=== PATIENT | female | born 1990 | race Caucasian/White ===

== ENCOUNTER 2020-11-14 18:30 | Emergency (ER) | payer OTHER, SELFPAY ==
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
[2020-11-14 18:37] VITALS: BP 130/80; BP 148/76; PULSE 100; PULSE 128; RESP 18; TEMP 36.7; O2SAT 97; BMI 29.2
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
[2020-11-14] MEDS: Ondansetron ODT 4 MG TAB.RAPDIS TRANSLINGU (19:11)
[2020-11-14] MEDS: HYDROcodone Bit/Acetam 5/325 TABLET 1 TAB PO (19:12)
--- NOTE | 2020-11-14 19:18 | PC.NURSE ---
Patient medicated with pain meds per emar. Patient rates pain at 10
[2020-11-14 20:01] LABS: HCG Quantitative < 2 mIU/mL
[2020-11-14 22:00] VITALS: BP 116/86; PULSE 102; RESP 16; TEMP 36.6; O2SAT 98
== END 2020-11-14 22:13 | disposition home or self-care (01) ==
PROVIDERS: Emergency Provider Emergency Medicine; PCP Internal Medicine
DX: S00.12XA Contusion of left eyelid and periocular area, initial encounter (principal); S93.401A Sprain of unspecified ligament of right ankle, initial encounter; Y04.2XXA Assault by strike against or bumped into by another person, initial encounter; Y93.9 Activity, unspecified; Y92.410 Unspecified street and highway as the place of occurrence of the external cause; Y99.9 Unspecified external cause status
CPT/HCPCS: 36415; 70450; 70486; 73610; 73630; 84702; 99284

== ENCOUNTER 2020-12-29 11:16 | Outpatient (REF) | payer OTHER, SELFPAY ==
[2020-12-29 17:03] LABS: CT PCR NOT DETECTED (Not Detect.); NG PCR NOT DETECTED (Not Detect.)
[2020-12-30 08:55] LABS: BV Int Neg Control Negative (Negative); BV Int Pos Control Positive (Positive)
== END 2020-12-29 11:17 | disposition home or self-care (01) ==
LOC: HO.LAB 11:16
PROVIDERS: PCP Internal Medicine; Visit Provider Advanced Practice Midwife
DX: Z01.411 Encounter for gynecological examination (general) (routine) with abnormal findings (principal); L30.9 Dermatitis, unspecified; N76.0 Acute vaginitis; B96.89 Other specified bacterial agents as the cause of diseases classified elsewhere
CPT/HCPCS: 87480; 87491; 87510; 87591; 87660

== ENCOUNTER 2021-10-26 15:23 | Emergency (ER) | payer OTHER, SELFPAY ==
[2021-10-26 16:09] VITALS: BP 127/60; PULSE 67; RESP 18; TEMP 36.7; O2SAT 98; BMI 30.9
== END 2021-10-26 20:35 | disposition left against medical advice (07) ==
PROVIDERS: Emergency Provider Emergency Medicine; PCP Internal Medicine
DX: R51.9 Headache, unspecified (principal)
CPT/HCPCS: 99281

== ENCOUNTER 2022-02-03 11:17 | Outpatient (REF) | payer OTHER, SELFPAY | END 2022-02-03 11:18 | disposition home or self-care (01) | LOC: HO.LNP 11:17 | PROVIDERS: Visit Provider Advanced Practice Midwife | DX: Z01.419 Encounter for gynecological examination (general) (routine) without abnormal findings (principal) | CPT/HCPCS: 88142 ==

== ENCOUNTER 2022-04-22 10:14 | Outpatient (REF) | payer OTHER, SELFPAY ==
[2022-04-22 10:34] LABS: MANUAL DIFF FLAG NO
[2022-04-22 10:45] LABS: Basophils Percent Auto 0.3 % (0-2); Eosinophils Absolute Auto 0.1 X10*3/uL (0.0-0.4); Eosinophils Percent Auto 1.8 % (0-4); Hematocrit 38.3 % (37.0-47.0); Hemoglobin 12.2 g/dl (12.0-16.0); Imm Gran Abs Auto 0.01 X10*3/uL (0.00-0.03); Imm Gran Pct Auto 0.1 % (0.0-0.4); Lymphocytes Absolute Auto 1.2 X10*3/uL (1.2-4.9); Lymphocytes Percent Auto 17.9 % (20-40); Mean Corpuscular HGB Conc 31.9 g/dl (31.0-35.0); Mean Corpuscular Hemoglobin 25.8 pg (27.0-33.0); Mean Platelet Volume 8.4 fL (9.4-12.3); Monocytes Absolute Auto 0.5 X10*3/uL (0.1-1.2); Monocytes Percent Auto 7.6 % (2-11); Neutrophils Absolute Auto 4.9 x10*3/uL (2.0-8.3); Neutrophils Percent Auto 72.3 % (45-73); Platelet Count 483 X10*3/uL (160-400); Red Blood Count 4.73 X10*6/uL (4.20-5.50); Red Cell Distribution Width 13.3 % (11.0-16.0); White Blood Count 6.7 X10*3/uL (4.8-10.8)
[2022-04-22 11:40] LABS: Appearance Urine Clear; Color Urine Yellow; Glucose Urine UA Negative (Negative); Leukocyte Esterase Urine Negative (Negative); Nitrite Urine Negative (Negative); PH 5.5 (5.0-9.0); Specific Gravity - Urine 1.025 (1.005-1.025); UMIC TRIGGER UACC YES; Urine Blood Moderate (2+) (Negative); Urine Ketones Negative (Negative); Urine Protein Negative (Neg-Trace)
[2022-04-22 11:44] LABS: Bacteria Urine None Seen (None Seen); Hyaline Casts Urine 0-2 /LPF (0-2); RBC Urine >20 /HPF (0-2); Squamous Epithelial Cell Urine 0-2 /HPF (0-2); WBC Urine 0-5 /HPF (0-5)
[2022-04-22 13:15] LABS: Alanine Aminotransferase 27 U/L (0-31); Albumin Level 4.1 g/dL (3.5-5.0); Alkaline Phosphatase 89 U/L (39-117); Anion Gap 12 (12-20); Aspartate Amino Transferase 35 U/L (5-31); Bilirubin Total 0.4 mg/dL (0.0-1.0); Blood Urea Nitrogen 10 mg/dL (9-16); Calcium 9.1 mg/dL (8.4-10.2); Carbon Dioxide 26 mmol/L (22-29); Chloride 103 mmol/L (96-108); Cholesterol 239 mg/dL; Estimated Glomerular Filt Rate > 60; Glucose Fasting 96 mg/dL (60-99); HDL Cholesterol 54 mg/dL; LDL Cholesterol Calculated 156 mg/dl; Potassium 4.7 mmol/L (3.3-5.1); Sodium 136 mmol/L (135-145); Total Protein 7.3 g/dL (6.5-8.0); Triglycerides 147 mg/dL
[2022-04-22 13:35] LABS: TSH reflex Free T4 0.89 uIU/mL (0.32-4.0); Vitamin D 25-OH Total 18.7 ng/mL (>30)
== END 2022-04-22 10:15 | disposition home or self-care (01) ==
LOC: HO.LAB 10:14
PROVIDERS: PCP Internal Medicine; Visit Provider Internal Medicine
DX: Z00.00 Encounter for general adult medical examination without abnormal findings (principal); E55.9 Vitamin D deficiency, unspecified; E78.00 Pure hypercholesterolemia, unspecified; L30.9 Dermatitis, unspecified; R30.0 Dysuria
CPT/HCPCS: 36415; 80053; 80061; 81001; 82306; 84443; 85025

== ENCOUNTER 2023-02-03 10:02 | Outpatient (AMB) | payer OTHER, SELFPAY ==
[2023-02-03 10:09] VITALS: BP 110/76; BMI 33.3
--- NOTE | 2023-02-03 10:09 | MHC.OFFVIS ---
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 Commutator Inspector Required: No Information Interpreted: non-clinical & clinical Telecommunications Operator: Telecommunications Operator Present (Elvayn) Allergies No Known Allergies Allergy (Verified 02/03/23 10:10) Medication List - Last Reconciled 02/03/23 by Beverly Wooten CNM clobetasol 0.05% 1 appl topical BID dupilumab (Dupixent) mg subcut norethindrone ac-eth estradiol 1.5-30 mg-mcg (Junel) 1 tab PO DAILY triamcinolone acetonide 0.5% 1 appl topical BID PRN 10 days Is last menstrual period known: No Post menopausal: No HPI 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 Lengthy discussion about the fact that ?? periods that occur when somebody is on a hormonal method of control are not in fact periods but they are in fact withdrawal bleed and we count any amount of bleeding and it is all important. Patient states she and her partner have had discussions about whether not to have a baby and she is feeling that she would want to have a baby by the time she is 35 or 36 or not at all and she has had this discussion with him. They have a 13-year-old her raising which is his child from a previous relationship. 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 She has just recently started to get back into a healthy eating and exercise routine. She has lost a little bit so far. She takes her pills always at the same time and so far has been good with the 7 day break but being off the pills those days does throw her a little bit because she is so used to taking her pill with brushing her teeth, so when she stops for 7 days it is sometimes disruptive to her pattern. After lengthy discussion she decided that she would try the 28 day cycle pills for this reason. Once in a while she gets a regular full menses but sometimes it is just light staining for 3 days or just even 1 day but it is always at the appropriate time she is 100% on point she believes though with her pills and has only missed pills less than 5 times in her lifetime. She took plan B and did not like how it made her feel. [facility] Medical History Eczema Obesity (BMI 30-39.9) Surgical History No pertinent past surgical history Family History Father No problems noted. Mother No problems noted. 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 Female Reproductive History Menstrual Age of Menarche: 14 Duration of menses: <3 days control method: pills Total pregnancies: 0 Date of last pap smear: 02/03/22 (negative) History of abnormal pap smear: Yes (ASCUS 2018) Physical Exam Vital Signs: Last Vital Signs BP 110/76 02/03/23 10:09 BMI result Body Mass Index 33.3 Const General: healthy appearing, comfortable, no acute distress, well developed and alert Nutritional Appearance: average body habitus Orientation/consciousness: patient oriented x3 Limitations: no limitations HEENT Head: Yes normocephalic Neck Other: Difficult to say whether the thyroid is enlarged or not Neck: Yes normal visual inspection Thyroid: Thyroid normal Chest Chest palpation & inspection: normal inspection of the chest Breast/axilla inspection: normal inspection of the breasts and normal inspection of the axillae Breast/axilla palpation: normal palpation of the breasts and normal palpation of the axillae Resp Effort & Inspection: normal respiratory effort GI Inspection: Yes normal to inspection, No Abdominal wall edema and No distended Palpation (GI): Soft to palpation and nontender General: Yes bladder normal to palpation External Female Exam: normal external appearance and normal appearance of the urethra Speculum Exam - Vagina: normal appearance of the vagina, normal palpation and normal vaginal discharge Speculum Exam - Cervix: normal appearance of the cervix, normal palpation and nontender Bimanual exam- vagina & uterus: normal bimanual exam, normal palpation, uterine size normal, bladder normal to palpation, consistency normal, normal palpation, uterine mobility normal, uterine shape normal, No Cervical tenderness present, non-tender and no cervical motion tenderness Bimanual Exam- Adnexa, other: normal adnexae, no masses, normal and No adnexal tenderness Neuro General: patient oriented x3 Assessment & Plan Assessment & Plan (1) Counseling for control, oral contraceptives: Code(s): Z30.09 - Encounter for other general counseling and advice on contraception (2) Encounter for preconception consultation: Code(s): Z31.69 - Encounter for other general counseling and advice on procreation (3) Well woman exam with routine gynecological exam: Code(s): Z01.419 - Encounter for gynecological examination (general) (routine) without abnormal findings (4) Obesity (BMI 30-39.9): Code(s): E66.9 - Obesity, unspecified (5) Weight gain: Comment: Will check thyroid level, Code(s): R63.5 - Abnormal weight gain Plan -----Discussed in this visit the following: healthy balanced diet, regular and consistent exercise, getting recommended health screens, doing the best she can for her particular health concerns, kegel exercises, pap smear screening and followup recommendations, mammography screening and SBE, normal changes in cycles in her life stage--- .----I reviewed available options for Control Methods and their associated side effect profiles. In particular, we discussed the method most of interest to her. See HPI for the full discussion about the pills which was extensive. Decision made for her to switch to the 28 day pills is to start the 28 day pills exactly when she would have started the 21 day cycle pills but this time go straight from 1 pack to the next without skipping days in between. TSH level ordered as she has some concern as to whether not she has a an enlarged thyroid and it is difficult to say whether not it is or not based on exam. She has gained some weight though she thinks it was due to when she was depressed in the past. Lengthy discussion about optimal time for conception both in life and within the cycles, and rationale. 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 Orders: Orders CT NG by PCR Today Z20.2 - Contact with and (suspected) exposure to infections with a predominantly sexual mode of transmission Pap Smear Today Z12.4 - Encounter for screening for malignant neoplasm of cervix Thyroid Stimulating Hormone Today E66.9 - Obesity, unspecified, R63.5 - Abnormal weight gain, Z01.419 - Encounter for gynecological examination (general) (routine) without abnormal findings, Z30.09 - Encounter for other general counseling and advice on contraception, Z31.69 - Encounter for other general counseling and advice on procreation Bacterial Vaginosis Panel Today Z20.2 - Contact with and (suspected) exposure to infections with a predominantly sexual mode of transmission Medications: New norethindrone ac-eth estradiol 1.5-30 mg-mcg 1 tab PO DAILY 84 tabs 4RF Coding Level of Care Code Est Pt Prev Care 18-39y(61667) Diagnoses Counseling for control, oral contraceptives Z30.09 Encounter for preconception consultation Z31.69 Well woman exam with routine gynecological exam Z01.419 Obesity (BMI 30-39.9) E66.9 Weight gain R63.5
== END 2023-02-03 11:01 | disposition home or self-care (01) ==
PROVIDERS: Visit Provider Advanced Practice Midwife
DX: Z01.419 Encounter for gynecological examination (general) (routine) without abnormal findings (principal); R63.5 Abnormal weight gain; Z30.09 Encounter for other general counseling and advice on contraception
CPT/HCPCS: 99395

== ENCOUNTER 2023-02-03 10:02 | Outpatient (REF) | payer OTHER, SELFPAY ==
[2023-02-08 18:18] LABS: HPV mRNA E6/E7 rflx Not Detected (Not Detected)
== END 2023-02-03 10:03 | disposition home or self-care (01) ==
LOC: HO.LNP 10:02
PROVIDERS: Visit Provider Advanced Practice Midwife
DX: Z12.4 Encounter for screening for malignant neoplasm of cervix (principal); Z11.51 Encounter for screening for human papillomavirus (HPV)
CPT/HCPCS: 87624; 88142

== ENCOUNTER 2023-02-03 11:05 | Outpatient (REF) | payer OTHER, SELFPAY ==
[2023-02-03 12:44] LABS: Thyroid Stimulating Hormone 0.47 uIU/mL (0.32-4.0)
[2023-02-03 14:21] LABS: CT PCR NOT DETECTED (Not Detect.); NG PCR NOT DETECTED (Not Detect.)
[2023-02-04 14:10] LABS: BV Int Neg Control Negative (Negative); BV Int Pos Control Positive (Positive)
== END 2023-02-03 11:06 | disposition home or self-care (01) ==
LOC: HO.LAB 11:05
PROVIDERS: PCP Internal Medicine; Visit Provider Advanced Practice Midwife
DX: Z20.2 Contact with and (suspected) exposure to infections with a predominantly sexual mode of transmission (principal); R63.5 Abnormal weight gain
CPT/HCPCS: 0353U; 84443; 87480; 87510; 87660

== ENCOUNTER 2023-03-01 13:07 | Outpatient (AMB) | payer OTHER, SELFPAY ==
--- NOTE | 2023-03-01 14:05 | MHC.OFFWIV ---
Intake Vital Signs 03/01/23 14:06 Height 5 ft 3 in Weight 191 lb BMI 33.8 BP 116/76 Blood Pressure Location Lt brachial Position Sitting Pulse 72 Pulse Source Pulse Oximeter Temp 99.6 F Temp Source Oral Pulse Oximetry (%) 99 Oxygen Delivery Method Room Air Intake Visit Reasons: EST/cough/wheezing(lobby masked) Intake Note: Patient is here with cough and congestion for 2 weeks. She tried OTC meds with not much relief. Patient Tobacco Use Status: Never used Tobacco Allergies No Known Allergies Allergy (Verified 03/01/23 14:09) Do you need a note to return to daycare/school/sports/work: No HPI HPI Comments History of Present Illness Details Patient is a 33-year-old female in today for a sick visit. She reports that over the past week she has developed a cough, headache, sore throat, which has gotten progressively worse over the week. She states that today is the 1st day she started to feel fever and chills. Denies shortness of breath or chest pain, denies nausea, vomiting, diarrhea. Denies dizziness. Has used [id number] medicine like Tylenol on cough suppressants with some good effect. Patient's head is normocephalic, TMs visible pearly cruz and intact. Patient has no maxillary or frontal sinus tenderness. Patient does have some erythema on the back of the pharynx. No lymphadenopathy. Patient likely has upper respiratory infection. This is unlikely to be an epiglottitis, peritonsillar abscess, or pose any threat to the airway. This is also unlikely to be mastoiditis. Will prescribe prednisone, azithromycin, instruct patient to take Tylenol and/or Motrin as directed on the bottle. Patient has been educated on side effects of these medications and how to take them appropriately. She has been educated on signs of worsening symptoms when to report back to the walk-in clinic or when to present herself to the ED. Patient is agreeable to this plan. [facility] Medical History Eczema Obesity (BMI 30-39.9) Surgical History No pertinent past surgical history Family History Father No problems noted. Mother No problems noted. 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 ENT/Mouth : Admits sore throat. Cardiovascular : No Chest Pain, No SOB, No Dyspnea on Exertion, No Orthopnea, No Edema, No Palpitations Respiratory : No Cough, No Sputum, Admits wheeze. Gastrointestinal : No Nausea, No Vomiting, No Diarrhea, No Constipation, No abdominal Pain, No Hematochezia, No Melena Neuro : No Weakness, No Numbness, No Dizziness, No Headache Heme/Lymph: No Lymphadenopathy All other systems reviewed and are negative Physical Exam Vital Signs: Last Vital Signs Temp 99.6 F 03/01/23 14:06 Pulse 72 03/01/23 14:06 BP 116/76 03/01/23 14:06 Pulse Ox 99 03/01/23 14:06 Oxygen Delivery Method Room Air 03/01/23 14:06 BMI result Body Mass Index 33.8 Final signs are reviewed and are stable Const Other: Appearance: Alert.? Oriented X3.? No acute distress.? ENT: Pharynx erythema. Nares patent. TM visible, intact, pearrly cruz. ? Neck: Normal inspection.? Neck supple.? CVS: Normal heart rate and rhythm.? Pulses normal.? Respiratory: No respiratory distress.? Slight upper lobe expiratory wheeze.? Neuro: Oriented X 3.? No motor deficit.?CN 2-12 intact. Results Reviewed Results Reviewed: Patient had in office respiratory swab will get back to her with these results. Assessment & Plan Assessment & Plan (1) Upper respiratory infection: Code(s): J06.9 - Acute upper respiratory infection, unspecified Qualifiers: URI type: unspecified URI Qualified Code(s): J06.9 - Acute upper respiratory infection, unspecified Plan: Or azithromycin, prednisone. Patient has been educated the side effects of these medications and how to take them properly. Patient has been educated she could take the full course of antibiotics even if she starts to feel better before she completes the course. She has been educated on signs of worsening symptoms and when she should return to the walk-in clinic and when she had she return to the ED. patient is agreeable to this plan Coding Level of Care Code Est Pt Level 3 (95839) Diagnoses Upper respiratory tract infection, unspecified type J06.9 URI type: unspecified URI Time Spent (min) 20
[2023-03-01 14:06] VITALS: BP 116/76; PULSE 72; TEMP 37.6; O2SAT 99; BMI 33.8
== END 2023-03-01 14:55 | disposition home or self-care (01) ==
PROVIDERS: PCP Internal Medicine; Visit Provider Nurse Practitioner Primary Care
DX: J06.9 Acute upper respiratory infection, unspecified (principal)
CPT/HCPCS: 99213

== ENCOUNTER 2023-03-01 16:11 | Outpatient (REF) | payer OTHER, SELFPAY ==
[2023-03-01 17:10] LABS: Influenza A PCR NEGATIVE (Negative); Influenza B PCR NEGATIVE (Negative); Resp Syncy Virus RNA Qual PCR NEGATIVE (Negative); SARS COV2 PCR INHOUSE NEGATIVE (Negative)
== END 2023-03-01 16:12 | disposition home or self-care (01) ==
LOC: HO.LNP 16:11
PROVIDERS: Visit Provider Nurse Practitioner Primary Care
DX: Z11.52 Encounter for screening for COVID-19 (principal); J06.9 Acute upper respiratory infection, unspecified
CPT/HCPCS: 0241U

== ENCOUNTER 2023-05-06 16:36 | Outpatient (AMB) | payer OTHER, SELFPAY ==
--- NOTE | 2023-05-06 16:41 | A.OFFPC_ITS ---
Vital Signs 05/06/23 16:42 Height 5 ft 3 in Weight 190 lb BMI 33.7 BP 100/70 Blood Pressure Location Lt brachial Position Sitting Pulse 61 Pulse Source Pulse Oximeter Pulse Oximetry (%) 97 Oxygen Delivery Method Room Air Intake Visit Reasons: Physical Exam Tortilla Maker Required: No Accompanied by: Self / Same As Patient Allergies No Known Allergies Allergy (Verified 05/06/23 17:26) Medication List - Last Reconciled 05/06/23 by Bowen Hernandez MD clobetasol 0.05% 1 appl topical BID dupilumab (Dupixent) 300 mg subcut Q2W norethindrone ac-eth estradiol 1.5-30 mg-mcg (Junel) 1 tab PO DAILY triamcinolone acetonide 0.5% 1 appl topical BID PRN 10 days Tobacco use date assessed: 05/06/23 Dental Screening Dental Screen Date: 05/06/23 Did you have a dental visit in the last 12 months?: Yes Did you have a dental problem in the last 6 months where you did not have access to dental care?: No Was dental information given to patient?: Patient has dentist HPI Physical Exam HPI Details Patient comes in today for her annual physical examination States that she has been having trouble sleeping again lately (mostly with staying asleep) since she started working the third shift again recently States that she has no trouble falling asleep but often keeps waking up in the middle of her sleep for no particular reason States that her boyfriend has also mentioned to her that she tends to snore heavily often when she is sleeping lately and that she would occasionally stop breathing for a few seconds, after which she would start coughing (at which point she may sometimes wake up) and she would then go back to breathing normally Is concerned that she may now have sleep apnea based on her current symptoms States that she feels okay otherwise She denies any headaches or dizziness Denies any chest pains, no SOB No nausea/vomiting, no abdominal pain No change in bowel habits noted Denies any acute urinary symptoms States that her eczema has improved significantly since she was started on Dupixent injections She is up-to-date with her annual pap smear and gynecology exam [facility] Medical History Eczema Obesity (BMI 30-39.9) Surgical History No pertinent past surgical history Family History Father No problems noted. Mother No problems noted. 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 1. Little interest or pleasure in doing things: not at all 2. Feeling down, depressed, or hopeless: not at all 3. Trouble falling or staying asleep, or sleeping too much: not at all 4. Feeling tired or having little energy: not at all 5. Poor appetite or overeating: not at all 6. Feeling bad about yourself - or that you are a failure or have let yourself or your family down: not at all 7. Trouble concentrating on things, such as reading the newspaper or watching television: not at all 8. Moving or speaking so slowly that other people could have noticed. Or the opposite - being so fidgety or restless that you have been moving around a lot more than usual: not at all 9. Thoughts that you would be better off or of hurting yourself in some way: not at all Total score: 0 Depression Screening Interpretation: Negative Depression Screening Done: Yes 87963 - PHQ-9 Billing: Yes Source: Developed by Drs. Mateo Benito, Helena Castanon, Isrrael Morillo and colleagues, with an educational lauren from [employer]. Thrive Questionnaire Date Thrive assessed: 05/06/23 I am a: Patient What is your living situation today?: I have a steady place to live Within the past 12 months, did the food you bought not last and you didn't have the money to get more?: Never true Within the past 12 months, did you worry whether your food would run out before you got money to buy more?: Never true Do you have trouble paying for medicines?: No Do you have trouble getting transportation to medical appointments?: No Do you have trouble paying your heating and electricity bill?: No Do you have trouble taking care of your child, family member or friend?: No Do you have trouble with day-to-day activities such as bathing, preparing meals, shopping, managing finances, etc.?: No Are you currently unemployed and looking for a job?: No Are you interested in more education?: No Please select the resources that you would like help with: None Currently or been in a relationship where the following occur: no concerns reported THRIVE Score: 0 AUDIT C Alcohol Use Questionnaire (AUDIT-C) 1. How often do you have a drink containing alcohol?: Monthly or less 2. How many drinks containing alcohol do you have on a typical day when you are drinking?: 1 or 2 3. How often do you have six or more drinks on one occasion?: Never Total Score: 1 Score Reviewed/Action Taken: Yes PADMINI-7 AMB Questionnaire PADMINI-7 Date PADMINI - 7 assessed: 05/06/23 Feeling nervous, anxious, or on edge: 0 = Not at all Not being able to stop or control worryin = Not at all Worrying too much about different things: 0 = Not at all Trouble relaxin = Not at all Being so restless that it is hard to sit still: 0 = Not at all Becoming easily annoyed or irritable: 0 = Not at all Feeling afraid as if something awful might happen: 0 = Not at all Total PADMINI-7 score (0-4 normal; 5-9 mild; 10-14 moderate; 15-21 severe): 0 Source: Developed by Drs. Mateo Benito, Helena Castanon, Isrrael Morillo and colleagues, with an educational lauren from [employer]. Review of Systems Const Denies chills, Reports difficulty sleeping (mostly with staying asleep - see HPI), Reports fatigue, Denies fever(s), Denies headache(s), Denies malaise, Reports snoring (heavy) and Reports stops breathing during sleep (at times, per her boyfriend) Eyes Denies blurry vision, Denies change in vision, Denies irritation and Denies itchy eyes ENT Denies dysphagia, Denies dizziness, Denies otalgia, Denies headache(s), Denies nasal congestion, Denies neck pain, Denies odynophagia, Denies sinus pain and Denies sore throat Card Denies chest pain, Denies rapid heart rate, Denies irregular heart rhythm, Denies palpitations and Denies dyspnea Resp Denies chest congestion, Denies cough, Denies dyspnea, Reports snoring (heavy) and Denies wheezing GI Denies abdominal pain, Denies bloating, Denies constipation, Denies dysphagia, Denies heartburn, Denies diarrhea, Denies nausea, Denies odynophagia and Denies vomiting Denies hematuria, Denies urinary frequency, Denies dysuria, Denies urinary incontinence and Denies urinary urgency Musc Denies back pain, Denies arthralgias, Denies joint swelling, Denies muscle weakness and Denies neck pain Skin/Breast Denies breast pain, Denies breast mass, Denies change in pigmentation, Denies lesions, Denies rash and Denies unusual bruising Neuro Denies dizziness, Denies headache(s) and Denies paresthesias Psych Denies anxiety and Denies depression Endo Reports fatigue and Denies palpitations Abhilash/Lymph Denies easy bruising Aller/Immun Denies itchy eyes and Denies wheezing Physical exam (Primary Care) Vital Signs: Last Vital Signs Pulse 61 05/06/23 16:42 BP 100/70 05/06/23 16:42 Pulse Ox 97 05/06/23 16:42 Oxygen Delivery Method Room Air 05/06/23 16:42 BMI result Body Mass Index 33.7 Tobacco/Smoking Status: Tobacco use Status Tobacco use date assessed 05/06/23 05/06/23 16:46 Patient Tobacco Use Status Never used Tobacco 05/06/23 16:46 e-Cigarette/Vaping Use Never Used 05/06/23 16:46 PHQ-9: PHQ-9 Score PHQ-9: Total score 0 05/06/23 17:28 Depression Screening Interpretation: Negative Thrive Assessment: Date of Thrive Assessment Date Thrive assessed 05/06/23 05/06/23 16:46 Currently or been in a relationship where the following occur: no concerns reported Const General: no acute distress, alert and awake Orientation/consciousness: patient oriented x3 HENMT Head: Yes normocephalic and Yes atraumatic Ears: external ears normal, TM's normal bilaterally and EAC's normal General nose exam: No nasal discharge present Face and sinus: Yes normal facial exam and Yes sinuses nontender Teeth and gingiva: dentition normal Throat: Yes posterior oropharynx normal and Yes tonsils normal (no TP congestion) Eyes Eyelids: Yes eyelids normal Conjunctivae: conjunctivae normal Pupils: Equal, round and reactive pupils present EOM: EOMs intact bilaterally Neck Neck: Yes no lymphadenopathy and Yes supple Thyroid: Thyroid normal Resp Auscultation: clear to auscultation bilaterally, no crackles, no rales and no wheezes Cardio Rate: regular rate Rhythm: regular rhythm Heart sounds: no murmurs GI Palpation (GI): Soft to palpation, nontender and No hepatosplenomegaly present Auscultation: normal bowel sounds General: Yes no CVA tenderness Back/Spine/Pelvis Back: no CVA tenderness Thoracic/Lumbar Spine: thoracic and lumbar spine normal to inspection Skin Lesions: no lesions Rashes: no rashes Neuro General: patient oriented x3, moves all extremities, no focal motor deficits and CN's II-XI intact bilaterally Cranial nerves: Yes Equal, round and reactive pupils present Cognition (Neuro): normal cognition Gait exam (Neuro): Normal gait present Extrem General: Yes no clubbing, cyanosis or edema Assessment and Plan Assessment & Plan (1) Annual physical exam: Code(s): Z00.00 - Encounter for general adult medical examination without abnormal findings Plan: Check labs Patient is up-to-date with her annual pap smear and gynecology exam (2) Eczema: Code(s): L30.9 - Dermatitis, unspecified Qualifiers: Eczema type: unspecified Qualified Code(s): L30.9 - Dermatitis, unspecified Plan: Better controlled on Dupixent injections 300 mg SQ Q 2 weeks Continue Clobetasol 0.05% cream BID PRN Follow up with dermatology as scheduled (3) Witnessed apneic spells: Code(s): R06.81 - Apnea, not elsewhere classified Plan: Will refer patient for a home sleep study for further evaluation / r/o SHIRA Patient is advised that if her insurance will not cover the study, we will then alternatively refer her to Sleep Medicine for further evaluation and management (4) Insomnia: Code(s): G47.00 - Insomnia, unspecified Qualifiers: Insomnia type: unspecified Qualified Code(s): G47.00 - Insomnia, unspecified Plan: Sleep hygiene reinforced Discussed that her current sleep issues are most likely related to her work hours (shift-work sleep disorder) Discussed treatment options, including sleep aids - advised that most sleep aids can help with her falling asleep and staying asleep but sedation may linger on into the next day Have advised patient that she can try OTC Melatonin to at least help her get adjusted to her current sleep/work schedule, after which she can stop taking the medication once she is better adjusted Patient adds that she prefers not to take any Rx for sleep if she can avoid it - have advised that she can call at any time if she needs any help further on this (5) Obesity (BMI 30-39.9): Code(s): E66.9 - Obesity, unspecified Plan: Reinforced diet/exercise as tolerated/lose weight Plan To return in 1 year for her next annual physical examination Orders: Orders Complete Blood Count Auto Diff 05/06/23 D64.9 - Anemia, unspecified, Z00.00 - Encounter for general adult medical examination without abnormal findings Comprehensive [place]. Panel Fast 05/06/23 E78.00 - Pure hypercholesterolemia, unspecified, Z00.00 - Encounter for general adult medical examination without abnormal findings Thyroid Stimulating Hormone 05/06/23 R63.5 - Abnormal weight gain, R79.89 - Other specified abnormal findings of blood chemistry RT home sleep study 05/06/23 R06.81 - Apnea, not elsewhere classified, R53.83 - Other fatigue Lipid Panel 05/06/23 E78.00 - Pure hypercholesterolemia, unspecified, Z00.00 - Encounter for general adult medical examination without abnormal findings UA CC w/rflx Micro + Cult 05/06/23 R30.0 - Dysuria, Z00.00 - Encounter for general adult medical examination without abnormal findings Vitamin D 25-OH Total 05/06/23 E55.9 - Vitamin D deficiency, unspecified, Z00.00 - Encounter for general adult medical examination without abnormal findings Free T4 (Free Thyroxine) 05/06/23 R63.5 - Abnormal weight gain, R79.89 - Other specified abnormal findings of blood chemistry Coding Level of Care Code Est Pt Prev Care 18-39y(33404) Diagnoses Annual physical exam Z00.00 Eczema, unspecified type L30.9 Eczema type: unspecified Witnessed apneic spells R06.81 Insomnia, unspecified type G47.00 Insomnia type: unspecified Obesity (BMI 30-39.9) E66.9
[2023-05-06 16:42] VITALS: BP 100/70; PULSE 61; O2SAT 97; BMI 33.7
== END 2023-05-06 17:45 | disposition home or self-care (01) ==
PROVIDERS: PCP Internal Medicine; Visit Provider Internal Medicine
DX: Z00.00 Encounter for general adult medical examination without abnormal findings (principal); L30.9 Dermatitis, unspecified; E66.9 Obesity, unspecified; Z68.33 Body mass index [BMI] 33.0-33.9, adult; R06.81 Apnea, not elsewhere classified; G47.00 Insomnia, unspecified
CPT/HCPCS: 99395

== ENCOUNTER 2023-06-23 08:32 | Outpatient (AMB) | payer OTHER, SELFPAY ==
[2023-06-23 08:55] VITALS: BP 116/76; PULSE 81; TEMP 36.6; O2SAT 99; BMI 33.3
--- NOTE | 2023-06-23 08:55 | AM.OFFWIN_ITS ---
Intake Vital Signs 06/23/23 08:55 Height 5 ft 3 in Weight 188 lb BMI 33.3 BP 116/76 Blood Pressure Location Lt brachial Position Sitting Pulse 81 Pulse Source Pulse Oximeter Temp 97.9 F Temp Source Temporal Artery Scan Pulse Oximetry (%) 99 Oxygen Delivery Method Room Air Intake Visit Reasons: EP ?Sinus Infection Intake Note: pt is here today for sinus infection started 2 days Patient Tobacco Use Status: Never used Tobacco Allergies No Known Allergies Allergy (Verified 06/23/23 08:56) Do you need a note to return to daycare/school/sports/work: No HPI EP ?Sinus Infection HPI Details This is a 33 year old female patient who presents today with a report of 2 day history of nasal congestion/pressure and itchy throat. Denies any fever, chills, cough, shortness of breath, GI symptoms, or known exposure to sick contacts. 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 [facility] Medical History Eczema Obesity (BMI 30-39.9) Surgical History No pertinent past surgical history Family History Father No problems noted. Mother No problems noted. 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 Cognitive needs: No Hearing needs: No Vision needs: No Female Reproductive History Menstrual Age of Menarche: 14 Review of Systems Const All systems reviewed & are unremarkable except as noted in HPI and below Physical Exam Vital Signs: Last Vital Signs Temp 97.9 F 06/23/23 08:55 Pulse 81 06/23/23 08:55 BP 116/76 06/23/23 08:55 Pulse Ox 99 06/23/23 08:55 Oxygen Delivery Method Room Air 06/23/23 08:55 BMI result Body Mass Index 33.3 Const General: cooperative, healthy appearing, comfortable and no acute distress Nutritional Appearance: average body habitus HEENT Head: Yes normal to inspection Ears: hearing grossly normal bilaterally, external ears normal and TM's normal bilaterally General nose exam: Normal external nose present, Normal nares present, Normal nasal mucous membranes and turbinates present and Nasal discharge present mucoid Face and sinus: Yes normal facial exam and Yes sinus tenderness (mild maxillary tenderness) Mouth: Normal oral and palatal mucosa present Throat: Yes posterior oropharynx normal Neck Neck: Yes no lymphadenopathy Resp Effort & Inspection: normal respiratory effort Auscultation: clear to auscultation bilaterally Cardio Palpation: normal PMI Rate: regular rate Rhythm: regular rhythm Skin General skin exam: no rashes or lesions noted Extrem General: Yes capillary refill normal Psych Appearance: grossly normal Mental Status: mental status grossly normal Speech and movement: Normal speech and movement present Assessment & Plan Assessment & Plan (1) Viral upper respiratory infection: Code(s): J06.9 - Acute upper respiratory infection, unspecified Plan: Symptoms consistent with viral upper respiratory illness. Covid/Flu/RSV swab obtained and patient aware she will be notified of results once available. Advised conservative measures for illness at this time, including otc cold/flu products. Recommended increased Vitamin C, water, rest, and healthy food intake. Will also start her on fluticasone nasal spray for the nasal pressure/congestion. We reviewed use and possible s/e of this. If she does not improve with time and conservative measures, she can return to the clinic for further evaluation. She agrees to plan. Medications: New fluticasone propionate 50 mcg/actuation administer into each nostril 1 spray intranasal Q12H 16 grams 0RF J06.9 - Acute upper respiratory infection, unspecified Coding Level of Care Code Est Pt Level 3 (00267) Diagnoses Viral upper respiratory infection J06.9
== END 2023-06-23 09:53 | disposition home or self-care (01) ==
PROVIDERS: PCP Internal Medicine; Visit Provider Nurse Practitioner Family
DX: J06.9 Acute upper respiratory infection, unspecified (principal)
CPT/HCPCS: 99213

== ENCOUNTER 2023-06-23 09:56 | Outpatient (REF) | payer OTHER, SELFPAY ==
[2023-06-23 14:28] LABS: Influenza A PCR NEGATIVE (Negative); Influenza B PCR NEGATIVE (Negative); Resp Syncy Virus RNA Qual PCR NEGATIVE (Negative); SARS COV2 PCR INHOUSE NEGATIVE (Negative)
== END 2023-06-23 09:57 | disposition home or self-care (01) ==
LOC: HO.LAB 09:56
PROVIDERS: Visit Provider Nurse Practitioner Family
DX: Z11.52 Encounter for screening for COVID-19 (principal); Z20.822 Contact with and (suspected) exposure to COVID-19; J06.9 Acute upper respiratory infection, unspecified
CPT/HCPCS: 0241U

== ENCOUNTER → 2023-06-29 08:04 | Outpatient (REF) | payer OTHER, SELFPAY | LOC: HO.SL 08:04 | PROVIDERS: PCP Internal Medicine; Visit Provider Internal Medicine | DX: G47.33 Obstructive sleep apnea (adult) (pediatric) (principal); R53.83 Other fatigue | CPT/HCPCS: 95806 ==

== ENCOUNTER → 2023-06-29 08:45 | Outpatient (BNV) | payer OTHER, SELFPAY | PROVIDERS: PCP Internal Medicine; Visit Provider Internal Medicine | DX: G47.33 Obstructive sleep apnea (adult) (pediatric) (principal) | CPT/HCPCS: 95806 ==

== ENCOUNTER 2024-02-06 13:05 | Outpatient (AMB) | payer BC, SELFPAY ==
[2024-02-06 13:12] VITALS: BP 116/70; BMI 33.3
--- NOTE | 2024-02-06 13:12 | MHC.OFFVIS ---
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 Present Allergies No Known Allergies Allergy (Verified 02/06/24 13:13) Medication List - Last Reconciled 02/06/24 by Beverly Wooten CNM clobetasol 0.05% 1 appl topical BID dupilumab (Dupixent) 300 mg subcut Q2W norethindrone ac-eth estradiol 1.5-30 mg-mcg (Junel) 1 tab PO DAILY Is last menstrual period known: Yes Last menstrual period: 02/02/24 Do you need a note to return to daycare/school/sports/work: No HPI HPI 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 Try to switch it to supply the end of this visit. Patient is doing well issue she occasionally be despite go that o'clock 6 she herself. So she had a so the study but she sits not because she could not sleep on the side, she is as side sleeper. She had the sleep study done but she was awake the whole time, readjusting monitor ---so test told her she had sleep apnea but it does not appear to be valid, so she is waiting on an appointment with her doctor to discuss this. Discussed other issues of sleep hygiene she very good patterns habits (since in darkened room its cool has a blanket does not her taken caffeine latter half of the day accept very very rarely then it is not much has no electronic media or lights in the room. She is working day shift now and feels she has less stress than she had before. [facility] Medical History Eczema Obesity (BMI 30-39.9) Surgical History No pertinent past surgical history Family History Father No problems noted. Mother No problems noted. 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 Cognitive needs: No Hearing needs: No Vision needs: No Female Reproductive History Menstrual Age of Menarche: 14 Duration of menses: 3-5 days Date of last menstrual period: 02/02/24 control method: pills Total pregnancies: 0 Date of last pap smear: 02/04/23 (negative ,previous pap 2021,neg) History of abnormal pap smear: No Physical Exam Vital Signs: Last Vital Signs BP 116/70 02/06/24 13:12 BMI result Body Mass Index 33.3 Const General: healthy appearing, comfortable, no acute distress, well developed and alert Nutritional Appearance: average body habitus Orientation/consciousness: patient oriented x3 Limitations: no limitations HEENT Head: Yes normocephalic Neck Neck: Yes normal visual inspection Thyroid: Thyroid normal Chest Chest palpation & inspection: normal inspection of the chest Breast/axilla inspection: normal inspection of the breasts and normal inspection of the axillae Breast/axilla palpation: normal palpation of the breasts and normal palpation of the axillae Resp Effort & Inspection: normal respiratory effort GI Inspection: Yes normal to inspection, No Abdominal wall edema and No distended Palpation (GI): Soft to palpation and nontender Other: External exam within normal limits vagina and moist cervix pink smooth healthy appearing clear scant mucus nulliparous uterus small midposition mobile nontender no adnexal tenderness or enlargement good muscle tone. General: Yes bladder normal to palpation External Female Exam: normal external appearance and normal appearance of the urethra Speculum Exam - Vagina: normal appearance of the vagina, normal palpation and normal vaginal discharge Speculum Exam - Cervix: normal appearance of the cervix, normal palpation and nontender Bimanual exam- vagina & uterus: normal bimanual exam, normal palpation, uterine size normal, bladder normal to palpation, consistency normal, normal palpation, uterine mobility normal, uterine shape normal, No Cervical tenderness present, non-tender and no cervical motion tenderness Bimanual Exam- Adnexa, other: normal adnexae, no masses, normal and No adnexal tenderness Neuro General: patient oriented x3 Results Reviewed Results Reviewed: Name: Shaheen Hopkins Age/Sex: 31/F Attending: Beverly Wooten CNM : 1990 Submitted by: Beverly Wooten CNM Copies to: MR #: [id number] Status: DEP REF Collected: 02/03/22 Location: [facility] Received: 02/03/22 Interpretation Satisfactory for evaluation. No endocervical cells seen. Negative for intraepithelial lesion or malignancy. Clinical Information LMP: No menses Previous PAP test: 11/14/19, WNL Material Received ThinPrep-Cervical Electronically Signed By: CORI Vincent (ASCP) 02/15/22 1245 The Pap Test is a screening procedure with the inherent possibility of both false negative and false positive results. Results should be interpreted in the context of historic and current clinical findings. Reliability of the Pap Test is enhanced by performing the test on a regular repetitive basis. Patient: Shaheen Hopkins Age/Sex: 31/F MR#: [id number] Page 1 of 1 Name: Shaheen Hopkins Age/Sex: 32/F Attending: Beverly Wooten CNM : 1990 Submitted by: Beverly Wooten CNM Copies to: MR #: [id number] Status: DEP REF Collected: 02/03/23 Location: [facility] Received: 02/04/23 Interpretation Satisfactory for evaluation. No endocervical cells seen. Mild inflammation. Negative for intraepithelial lesion or malignancy. HPV mRNA E6/E7: NOT DETECTED This assay detects E6/E7 viral messenger RNA (mRNA) from 14 high-risk HPV types (16, 18, 31, 33, 35, 39, 45, 51, 52, 56, 58, 59, 66, 68) HPV testing performed by [facility], [place], [place]. See reference laboratory pion of the EMR for entire report. Clinical Information LMP: Unknown date Previous PAP test: 02/03/22, WNL Material Received ThinPrep-Cervical Electronically Signed By: CORI Vincent (ASCP) 02/09/23 1250 The Pap Test is a screening procedure with the inherent possibility of both false negative and false positive results. Results should be interpreted in the context of historic and current clinical findings. Reliability of the Pap Test is enhanced by performing the test on a regular repetitive basis. Patient: Shaheen Hopkins Age/Sex: 32/F MR#: [id number] Page 1 of 1 Assessment & Plan Assessment & Plan (1) Counseling for control, oral contraceptives: Code(s): Z30.09 - Encounter for other general counseling and advice on contraception Category: Medical (2) Well woman exam with routine gynecological exam: Code(s): Z01.419 - Encounter for gynecological examination (general) (routine) without abnormal findings Category: Medical (3) Obesity (BMI 30-39.9): Code(s): E66.9 - Obesity, unspecified Category: Medical (4) Cervical cancer screening: Comment: 02/03/2022 Pap is negative; 02/03/2023 Pap is negative with negative HPV; Pap 5 years Code(s): Z12.4 - Encounter for screening for malignant neoplasm of cervix Category: Medical (5) Encounter for screening examination for sexually transmitted disease: Code(s): Z11.3 - Encounter for screening for infections with a predominantly sexual mode of transmission Category: Medical (6) Insomnia: Code(s): G47.00 - Insomnia, unspecified Category: Medical Qualifiers: Insomnia type: unspecified Qualified Code(s): G47.00 - Insomnia, unspecified Plan -----Discussed in this visit the following: healthy balanced diet, regular and consistent exercise, getting recommended health screens, doing the best she can for her particular health concerns, kegel exercises, pap smear screening and followup recommendations, mammography screening and SBE, normal changes in cycles in her life stage--- . Discussed all of the issues in HPI. Script was able to be sent for 3 month supply with 4 refills we will see if it works this time. Discussed pill taking she is definitely not skipping more than 7 days between active pills anyway . But will try the continuous pills 28 days 7 placebo. Testing done for infections Pap was negative last year.. Discussed all the issues involved with the sleep concerns it sounds like she is actually doing quite well she is only waking up about once a night. And she is able to go back to sleep again. RTC 1 year. Call for any problems Medications: Changed From norethindrone ac-eth estradiol 1.5-30 mg-mcg () Take 1 tablet daily for 21 days then stop for 7 days then resume with new pack 7 days after last active pill. 1 tab PO DAILY 21 tabs 12RF To norethindrone ac-eth estradiol 1.5-30 mg-mcg () Take 1 tablet daily 1 tab PO DAILY 84 tabs 4RF Coding Level of Care Code Est Pt Prev Care 18-39y(57748) Diagnoses Counseling for control, oral contraceptives Z30.09 Well woman exam with routine gynecological exam Z01.419 Obesity (BMI 30-39.9) E66.9 Cervical cancer screening Z12.4 Encounter for screening examination for sexually transmitted disease Z11.3 Insomnia, unspecified type G47.00 Insomnia type: unspecified
== END 2024-02-06 13:53 | disposition home or self-care (01) ==
LOC: HO.HWSM 13:05
PROVIDERS: PCP Internal Medicine; Visit Provider Advanced Practice Midwife
DX: Z30.09 Encounter for other general counseling and advice on contraception (principal); Z01.419 Encounter for gynecological examination (general) (routine) without abnormal findings; E66.9 Obesity, unspecified; Z12.4 Encounter for screening for malignant neoplasm of cervix; Z11.3 Encounter for screening for infections with a predominantly sexual mode of transmission; G47.00 Insomnia, unspecified
CPT/HCPCS: 99395

== ENCOUNTER 2024-02-06 13:05 | Outpatient (REF) | payer BC, SELFPAY ==
[2024-02-06 18:19] LABS: Bacterial Vaginosis PCR NEGATIVE (Negative); Candida Group PCR NOT DETECTED (Not Detect); Candida glab krusei PCR NOT DETECTED (Not Detect); Trichomonas vaginalis PCR NOT DETECTED (Not Detect)
[2024-02-07 05:17] LABS: CT PCR NOT DETECTED (Not Detect.); NG PCR NOT DETECTED (Not Detect.)
== END 2024-02-06 13:06 | disposition home or self-care (01) ==
LOC: HO.LAB 13:05
PROVIDERS: PCP Internal Medicine; Visit Provider Advanced Practice Midwife
DX: N89.8 Other specified noninflammatory disorders of vagina (principal); Z20.2 Contact with and (suspected) exposure to infections with a predominantly sexual mode of transmission
CPT/HCPCS: 0352U; 87491; 87591

== ENCOUNTER 2024-05-18 08:46 | Outpatient (AMB) | payer BC, SELFPAY ==
[2024-05-18 08:54] VITALS: BP 110/72; PULSE 65; O2SAT 98; BMI 33.3
--- NOTE | 2024-05-18 08:54 | A.OFFPC_ITS ---
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 Accompanied by: Self / Same As Patient Allergies No Known Allergies Allergy (Verified 05/18/24 09:12) Medication List - Last Reconciled 05/18/24 by Bowen Hernandez MD clobetasol 0.05% 1 appl topical BID dupilumab (Dupixent) 300 mg subcut Q2W norethindrone ac-eth estradiol 1.5-30 mg-mcg (Junel) 1 tab PO DAILY Tobacco use date assessed: 05/18/24 Dental Screening Dental Screen Date: 05/18/24 Did you have a dental visit in the last 12 months?: Yes Did you have a dental problem in the last 6 months where you did not have access to dental care?: No Was dental information given to patient?: Patient has dentist HPI PHYSICAL HPI Details Patient comes in today for her annual physical examination States that she feels okay She denies any headaches or dizziness Denies any chest pains, no SOB No nausea/vomiting, no abdominal pain No change in bowel habits noted Denies any acute urinary symptoms States that she had a home sleep study done last year and her test did come out positive for sleep apnea but she feels that she did not really sleep well during her test and her results are likely much worse than it actually is - is wondering if she needs to have her test redone or she should just proceed with the CPAP titration step She is up-to-date with her annual gynecology exam and pap smear - was last seen by gynecology in January 2024 [facility] Medical History Obstructive sleep apnea Eczema Obesity (BMI 30-39.9) Surgical History No pertinent past surgical history Family History Father No problems noted. Mother No problems noted. 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 1. Little interest or pleasure in doing things: not at all 2. Feeling down, depressed, or hopeless: not at all 3. Trouble falling or staying asleep, or sleeping too much: several days 4. Feeling tired or having little energy: not at all 5. Poor appetite or overeating: not at all 6. Feeling bad about yourself - or that you are a failure or have let yourself or your family down: not at all 7. Trouble concentrating on things, such as reading the newspaper or watching television: not at all 8. Moving or speaking so slowly that other people could have noticed. Or the opposite - being so fidgety or restless that you have been moving around a lot more than usual: not at all 9. Thoughts that you would be better off or of hurting yourself in some way: not at all Total score: 1 Depression Screening Interpretation: Negative Depression Screening Done: Yes 73475 - PHQ-9 Billing: Yes Source: Developed by Drs. Mateo Benito, Helena Castanon, Isrrael Morillo and colleagues, with an educational lauren from [employer]. Thrive Questionnaire Date Thrive assessed: 05/18/24 I am a: Patient What is your living situation today?: I have a steady place to live Within the past 12 months, did the food you bought not last and you didn't have the money to get more?: Sometimes True Within the past 12 months, did you worry whether your food would run out before you got money to buy more?: Sometimes True Do you have trouble paying for medicines?: No Do you have trouble getting transportation to medical appointments?: No Do you have trouble paying your heating and electricity bill?: Yes Do you have trouble taking care of your child, family member or friend?: No Do you have trouble with day-to-day activities such as bathing, preparing meals, shopping, managing finances, etc.?: No Are you currently unemployed and looking for a job?: No Are you interested in more education?: Yes Please select the resources that you would like help with: None Currently or been in a relationship where the following occur: No concerns reported THRIVE Score: 3 AUDIT C Alcohol Use Questionnaire (AUDIT-C) 1. How often do you have a drink containing alcohol?: 2-4 times a month 2. How many drinks containing alcohol do you have on a typical day when you are drinking?: 3 or 4 3. How often do you have six or more drinks on one occasion?: Less than monthly Total Score: 4 Score Reviewed/Action Taken: Yes PADMINI-7 AMB Questionnaire PADMINI-7 Date PADMINI - 7 assessed: 05/18/24 Feeling nervous, anxious, or on edge: 0 = Not at all Not being able to stop or control worryin = Not at all Worrying too much about different things: 0 = Not at all Trouble relaxin = Not at all Being so restless that it is hard to sit still: 0 = Not at all Becoming easily annoyed or irritable: 0 = Not at all Feeling afraid as if something awful might happen: 0 = Not at all Total PADMINI-7 score (0-4 normal; 5-9 mild; 10-14 moderate; 15-21 severe): 0 Source: Developed by Drs. Mateo Benito, Helena Castanon, Isrrael Morillo and colleagues, with an educational lauren from [employer]. Review of Systems Const Denies chills, Reports daytime sleepiness, Reports difficulty sleeping, Denies fatigue, Denies fever(s), Denies headache(s) and Denies malaise Eyes Denies blurry vision, Denies change in vision, Denies irritation and Denies itchy eyes ENT Denies dysphagia, Denies dizziness, Denies otalgia, Denies headache(s), Denies nasal congestion, Denies neck pain, Denies odynophagia, Denies sinus pain and Denies sore throat Card Denies chest pain, Denies rapid heart rate, Denies irregular heart rhythm, Denies palpitations and Denies dyspnea Resp Denies chest congestion, Denies cough, Denies dyspnea and Denies wheezing GI Denies abdominal pain, Denies bloating, Denies constipation, Denies dysphagia, Denies heartburn, Denies diarrhea, Denies nausea, Denies odynophagia and Denies vomiting Denies hematuria, Denies urinary frequency, Denies dysuria, Denies urinary incontinence and Denies urinary urgency Musc Denies back pain, Denies arthralgias, Denies joint swelling, Denies muscle weakness and Denies neck pain Skin/Breast Denies breast pain, Denies breast mass, Denies change in pigmentation, Denies lesions, Denies rash and Denies unusual bruising Neuro Denies dizziness, Denies headache(s) and Denies paresthesias Psych Denies anxiety and Denies depression Endo Denies fatigue and Denies palpitations Abhilash/Lymph Denies easy bruising Aller/Immun Denies itchy eyes and Denies wheezing Physical exam (Primary Care) Vital Signs: Last Vital Signs Pulse 65 05/18/24 08:54 BP 110/72 05/18/24 08:54 Pulse Ox 98 05/18/24 08:54 Oxygen Delivery Method Room Air 05/18/24 08:54 BMI result Body Mass Index 33.3 Tobacco/Smoking Status: Tobacco use Status Tobacco use date assessed 05/18/24 05/18/24 08:57 Patient Tobacco Use Status Never used Tobacco 05/18/24 08:57 e-Cigarette/Vaping Use Never Used 05/18/24 08:57 PHQ-9: PHQ-9 Score PHQ-9: Total score 1 05/18/24 08:57 Depression Screening Interpretation: Negative Thrive Assessment: Date of Thrive Assessment Date Thrive assessed 05/18/24 05/18/24 08:57 Currently or been in a relationship where the following occur: No concerns reported Const General: no acute distress, alert and awake Orientation/consciousness: patient oriented x3 HENMT Head: Yes normocephalic and Yes atraumatic Ears: external ears normal, TM's normal bilaterally and EAC's normal General nose exam: No nasal discharge present Face and sinus: Yes normal facial exam and Yes sinuses nontender Teeth and gingiva: dentition normal Throat: Yes posterior oropharynx normal and Yes tonsils normal (no TP congestion ) Eyes Eyelids: Yes eyelids normal Conjunctivae: conjunctivae normal Pupils: Equal, round and reactive pupils present EOM: EOMs intact bilaterally Neck Neck: Yes no lymphadenopathy and Yes supple Thyroid: Thyroid normal Resp Auscultation: clear to auscultation bilaterally, no rales and no wheezes Cardio Rate: regular rate Rhythm: regular rhythm Heart sounds: no murmurs GI Palpation (GI): Soft to palpation, nontender and No hepatosplenomegaly present Auscultation: normal bowel sounds General: Yes no CVA tenderness Back/Spine/Pelvis Back: no CVA tenderness Thoracic/Lumbar Spine: thoracic and lumbar spine normal to inspection Skin Lesions: no lesions Rashes: no rashes Neuro General: patient oriented x3, moves all extremities, no focal motor deficits and CN's II-XI intact bilaterally Cranial nerves: Yes Equal, round and reactive pupils present Cognition (Neuro): normal cognition Gait exam (Neuro): Normal gait present Extrem General: Yes no clubbing, cyanosis or edema Coding Level of Care Code Est Pt Prev Care 18-39y(24513) Diagnoses Annual physical exam Z00.00 Eczema, unspecified type L30.9 Eczema type: unspecified Obstructive sleep apnea G47.33 Insomnia, unspecified type G47.00 Insomnia type: unspecified Obesity (BMI 30-39.9) E66.9 Additional Codes PHQ-9 - 44727 - PHQ-9 Billing: Yes ([id number]) Assessment & Plan Assessment & Plan (1) Annual physical exam: Code(s): Z00.00 - Encounter for general adult medical examination without abnormal findings Category: Medical Plan: Check labs She is up-to-date with her annual gynecology exam and pap smear (2) Eczema: Code(s): L30.9 - Dermatitis, unspecified Category: Medical Qualifiers: Eczema type: unspecified Qualified Code(s): L30.9 - Dermatitis, unspecified Plan: Patient states that her eczema has been better controlled with Dupixent injections 300 mg SQ Q 2 weeks Continue Clobetasol 0.05% cream BID PRN Follow up with dermatology (Dr. Roa) as scheduled (3) Obstructive sleep apnea: Code(s): G47.33 - Obstructive sleep apnea (adult) (pediatric) Category: Medical Plan: Her in-home sleep study done in June 2023 came out with mild to moderately severe SHIRA but patient feels that her test results are worse than they actually are as she did not sleep well at all throughout her test Will refer her to Sleep Medicine for further evaluation and management (4) Insomnia: Code(s): G47.00 - Insomnia, unspecified Category: Medical Qualifiers: Insomnia type: unspecified Qualified Code(s): G47.00 - Insomnia, unspecified Plan: Sleep hygiene reinforced Patient still prefers not to take any Rx for sleep if she can avoid it, and have advised that she can call at any time if she needs any help further on this but she may actually need to take something for sleep if she has to repeat her sleep study and she can just call us for the Rx then (5) Obesity (BMI 30-39.9): Code(s): E66.9 - Obesity, unspecified Category: Medical Plan: Reinforced diet/exercise as tolerated/lose weight Plan To return in 1 year for her next annual physical examination Orders: Orders Complete Blood Count Auto Diff Today D64.9 - Anemia, unspecified, Z00.00 - Encounter for general adult medical examination without abnormal findings Comprehensive Spicer. Panel Fast Today E78.00 - Pure hypercholesterolemia, unspecified, Z00.00 - Encounter for general adult medical examination without abnormal findings Lipid Panel Today E78.00 - Pure hypercholesterolemia, unspecified, Z00.00 - Encounter for general adult medical examination without abnormal findings TSH reflex Free T4 Today E78.00 - Pure hypercholesterolemia, unspecified, Z00.00 - Encounter for general adult medical examination without abnormal findings UA CC w/rflx Micro + Cult Today R30.0 - Dysuria, Z00.00 - Encounter for general adult medical examination without abnormal findings Vitamin D 25-OH Total Today E55.9 - Vitamin D deficiency, unspecified, Z00.00 - Encounter for general adult medical examination without abnormal findings Referrals Sleep Medicine Referral G47.33 - Obstructive sleep apnea (adult) (pediatric)
== END 2024-05-18 09:31 | disposition home or self-care (01) ==
PROVIDERS: PCP Internal Medicine; Visit Provider Internal Medicine
DX: Z00.00 Encounter for general adult medical examination without abnormal findings (principal); L30.9 Dermatitis, unspecified; E66.9 Obesity, unspecified; Z68.33 Body mass index [BMI] 33.0-33.9, adult; G47.33 Obstructive sleep apnea (adult) (pediatric); G47.00 Insomnia, unspecified

== ENCOUNTER → 2024-05-18 08:46 | Outpatient (BNVA) | payer BC, SELFPAY | PROVIDERS: PCP Internal Medicine; Visit Provider Internal Medicine | DX: Z00.00 Encounter for general adult medical examination without abnormal findings (principal); L30.9 Dermatitis, unspecified; G47.33 Obstructive sleep apnea (adult) (pediatric); G47.00 Insomnia, unspecified; E66.9 Obesity, unspecified; Z68.33 Body mass index [BMI] 33.0-33.9, adult | CPT/HCPCS: 96127 ==

== ENCOUNTER 2024-05-31 10:55 | Outpatient (AMB) | payer BC, SELFPAY ==
[2024-05-31 10:59] VITALS: BP 114/70; PULSE 66; O2SAT 99; BMI 33.3
--- NOTE | 2024-05-31 10:59 | MHC.OFFVIS ---
Vital Signs 05/31/24 10:59 Height 5 ft 3 in Weight 188 lb 2 oz BMI 33.3 BP 114/70 Blood Pressure Location Lt brachial Position Sitting Pulse 66 Pulse Source Pulse Oximeter Pulse Oximetry (%) 99 Oxygen Delivery Method Room Air Intake Visit Reasons: INP-SHIRA Intake Note: Patient presents [employer] Sleep. Her in-home sleep study done in June 2023 came out with mild to moderately severe SHIRA but patient feels that her test results are worse than they actually are as she did not sleep well at all throughout her test Allergies No Known Allergies Allergy (Verified 05/31/24 11:04) HPI Comments Details: 34 year old female referred to us for obstructive sleep apnea, per PCP. HST Completed in Jun 2023, mild to moderate sleep apnea with AHI 31 in supine position and O2 desat to 89%. She c/o not being able to sleep well that night during the HST and started to cry. She snores and gasps for air as witnessed by her partner. She goes to bed at 8pm and wakes up at 5am, with 3 nightly awakenings, one for the bathroom. She continues to have vivid dreams and excessive fatigue daily. She has brain fog when waking up from bed and difficulty with remembering tasks. 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 She grinds her teeth at night and wakes up with mild headaches. She sleeps on her side and is a nose breather. Her diet, and mood is good, BMI is elevated and she stays pretty active due to her work. [facility] Medical History Obstructive sleep apnea Eczema Obesity (BMI 30-39.9) Surgical History No pertinent past surgical history Family History Father No problems noted. Mother No problems noted. 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 Cognitive needs: No Hearing needs: No Vision needs: No Female Reproductive History Menstrual Age of Menarche: 14 Review of Systems Const All systems reviewed & are unremarkable except as noted in HPI and below Physical Exam Vital Signs: Last Vital Signs Pulse 66 05/31/24 10:59 BP 114/70 05/31/24 10:59 Pulse Ox 99 05/31/24 10:59 Oxygen Delivery Method Room Air 05/31/24 10:59 BMI result Body Mass Index 33.3 Const General: cooperative, comfortable and no acute distress Nutritional Appearance: obese (BMI is 33.3) Orientation/consciousness: patient oriented x3 HEENT Face and sinus: Yes normal facial exam and Yes face symmetric Mouth: tongue normal (ulceration the tongue ) Teeth and gingiva: other ([place] score of 3 ) Eyes Pupils: Equal, round and reactive pupils present Resp Effort & Inspection: normal respiratory effort and able to speak in complete sentences Neuro General: patient oriented x3 Cranial nerves: Yes CN's II-XII intact bilaterally, Yes Facial sensation intact/muscles of mastication intact, Yes Equal, round and reactive pupils present, Yes Normal accommodation reflex present, Yes Bilaterally intact EOM present, Yes Nystagmus not present, Yes Normal facial strength present, Yes Midline tongue present, Yes Symmetric palate elevation present, Yes Ability to bilaterally rotate head present and Yes Ability to bilaterally elevate shoulders present Gait exam (Neuro): Normal gait present Motor exam (neuro): 5/5 motor strength present throughout and Abnormal motor strength present Deep tendon reflexes (DTR's): Right triceps reflex intensity grade: 2+, Left triceps reflex intensity grade: 2+, Rt Biceps (C5, C6): 2+, Left biceps reflex intensity grade: 2+, Right brachioradialis reflex intensity grade: 2+, Left brachioradialis reflex intensity grade: 2+, Right patellar reflex intensity grade: 2+ and Left patellar reflex intensity grade: 2+ Psych Attitude: cooperative Thought process: Normal thought process present Thought content: Normal thought content present Results Reviewed Results Reviewed: HST Completed in Jun 2023, mild to moderate sleep apnea with AHI 31 in supine position and O2 desat to 89%. CTscan - normal study Xray no fractures Assessment & Plan Assessment & Plan (1) Witnessed apneic spells: Code(s): R06.81 - Apnea, not elsewhere classified Category: Medical (2) Obstructive sleep apnea: Code(s): G47.33 - Obstructive sleep apnea (adult) (pediatric) Category: Medical (3) Brain fog: Code(s): R41.89 - Other symptoms and signs involving cognitive functions and awareness Category: Medical (4) Fatigue due to sleep pattern disturbance: Code(s): R53.83 - Other fatigue; G47.9 - Sleep disorder, unspecified Category: Medical (5) Loud snoring: Code(s): R06.83 - Snoring Category: Medical Plan PSG -Vivid Dreams, gasping and snoring. Fatigue will r/o deficiencies with Labs with CBC/CMP/ B12/ Vit D/ Ferritin/ MMA/ Homocystein/ Folate Bruxism mouth guard, may purchase OTC Brain Fog will r/o with TSH and Free T4 Snoring may use nose strips Orders: Orders Vitamin B12 and Folate Today G47.9 - Sleep disorder, unspecified, R53.83 - Other fatigue TSH reflex Free T4 Today G47.9 - Sleep disorder, unspecified, R41.89 - Other symptoms and signs involving cognitive functions and awareness, R53.83 - Other fatigue Methylmalonic Acid Today G47.9 - Sleep disorder, unspecified, R53.83 - Other fatigue IRON PROFILE Today G47.9 - Sleep disorder, unspecified, R53.83 - Other fatigue Homocysteine Today G47.9 - Sleep disorder, unspecified, R53.83 - Other fatigue Ferritin Today G47.9 - Sleep disorder, unspecified, R53.83 - Other fatigue RT PSG in-lab sleep study Today G47.33 - Obstructive sleep apnea (adult) (pediatric), R06.81 - Apnea, not elsewhere classified Patient Instructions: Sleep Hygiene Sleep in a dark, cool environment, with no devices in bed. Limit fluids 2 hours prior to bedtime. May diffuse essential oils to help with relaxation techniques. Read a book. Play calming music or white noise. Coding Level of Care Code Est Pt Level 4 (29279) Diagnoses Witnessed apneic spells R06.81 Obstructive sleep apnea G47.33 Brain fog R41.89 Fatigue due to sleep pattern disturbance R53.83; G47.9 Loud snoring R06.83 Time Spent (min) 30 Comment Worsening Sleep Questionnaire Difficulty falling asleep: No Difficulty staying asleep?: Yes Number of arousals: 2-3 Snoring: Yes (suppine sleep) Witnessed apneas: Yes Gasping arousals: Yes Nocturia: No GERD: No Vivid dreams: Yes (1-2 x a week) Acting out dreams: No Abnormal behavior in sleep: No Abnormal movements in sleep: No Morning headaches: No Excessive daytime sleepiness: Yes Daytime naps: Yes Restless legs: No Hallucinations: No Sleep paralysis: No Drop attacks: No Sleep Study: Yes (jun 2023 hst) CPAP: No
== END 2024-05-31 11:50 | disposition home or self-care (01) ==
PROVIDERS: PCP Internal Medicine; Visit Provider Physician Assistant Medical
DX: G47.33 Obstructive sleep apnea (adult) (pediatric) (principal); R41.89 Other symptoms and signs involving cognitive functions and awareness; R53.83 Other fatigue; G47.9 Sleep disorder, unspecified; R06.83 Snoring
CPT/HCPCS: 99214

== ENCOUNTER → 2024-05-31 10:55 | Outpatient (BNVA) | payer BC, SELFPAY | PROVIDERS: PCP Internal Medicine; Visit Provider Physician Assistant Medical ==

== ENCOUNTER 2024-06-02 07:14 | Outpatient (REF) | payer BC, SELFPAY ==
[2024-06-02 07:43] LABS: MANUAL DIFF FLAG NO
[2024-06-02 08:09] LABS: Basophils Percent Auto 0.3 % (0-2); Eosinophils Absolute Auto 0.2 X10*3/uL (0.0-0.4); Eosinophils Percent Auto 2.4 % (0-4); Hematocrit 37.8 % (37.0-47.0); Imm Gran Abs Auto 0.03 X10*3/uL (0.00-0.03); Imm Gran Pct Auto 0.5 % (0.0-0.4); Lymphocytes Absolute Auto 1.4 X10*3/uL (1.2-4.9); Lymphocytes Percent Auto 20.6 % (20-40); Mean Corpuscular HGB Conc 31.7 g/dl (31.0-35.0); Mean Corpuscular Hemoglobin 25.8 pg (27.0-33.0); Mean Corpuscular Volume 81.1 fL (80.0-98.0); Mean Platelet Volume 8.9 fL (9.4-12.3); Monocytes Absolute Auto 0.5 X10*3/uL (0.1-1.2); Monocytes Percent Auto 6.8 % (2-11); Neutrophils Absolute Auto 4.6 x10*3/uL (2.0-8.3); Neutrophils Percent Auto 69.4 % (45-73); Platelet Count 424 X10*3/uL (160-400); Red Blood Count 4.66 X10*6/uL (4.20-5.50); Red Cell Distribution Width 13.8 % (11.0-16.0); White Blood Count 6.6 X10*3/uL (4.8-10.8)
[2024-06-02 09:13] LABS: Alanine Aminotransferase 29 U/L (0-31); Alkaline Phosphatase 95 U/L (39-117); Anion Gap 10 (12-20); Aspartate Amino Transferase 37 U/L (5-31); Bilirubin Total 0.7 mg/dL (0.0-1.0); Blood Urea Nitrogen 5 mg/dL (9-16); Calcium 9.3 mg/dL (8.4-10.2); Carbon Dioxide 23 mmol/L (22-29); Chloride 107 mmol/L (96-108); Cholesterol 206 mg/dL (<200); Estimated Glomerular Filt Rate > 60; Glucose Fasting 99 mg/dL (60-99); HDL Cholesterol 43 mg/dL (>40); Iron 29 mcg/dL (30-160); LDL Cholesterol Calculated 129 mg/dL (<100); Percent Iron Saturation 9 % (15-50); Potassium 3.8 mmol/L (3.3-5.1); Sodium 136 mmol/L (135-145); Total Iron Binding Capacity 332 mcg/dL (228-428); Total Protein 7.6 g/dL (6.5-8.0); Triglycerides 170 mg/dL (<150); Unsaturated Iron Binding 303 ug/dL
[2024-06-02 09:23] LABS: Ferritin 79 ng/mL (10-122); TSH reflex Free T4 1.23 uIU/mL (0.32-4.0)
[2024-06-02 09:24] LABS: Appearance Urine Cloudy; Color Urine Yellow; Glucose Urine UA Negative (Negative); Leukocyte Esterase Urine Trace (Negative); Nitrite Urine Negative (Negative); PH 5.5 (5.0-9.0); UMIC TRIGGER UACC YES; Urine Blood Negative (Negative); Urine Ketones Negative (Negative); Urine Protein Negative (Neg-Trace)
[2024-06-02 09:30] LABS: TSH reflex Free T4 1.22 uIU/mL (0.32-4.0); Vitamin D 25-OH Total 7.1 ng/mL (>30)
[2024-06-02 09:36] LABS: Folate 7.9 ng/mL (> or = 4.0); Vitamin B12 377 pg/mL (200-900)
[2024-06-02 10:14] LABS: Bacteria Urine 1+ (None Seen); RBC Urine 0-2 /HPF (0-2); UACC Culture Trigger YES
[2024-06-05 23:58] LABS: Methylmalonic Acid 114 nmol/L (55-335)
== END 2024-06-02 07:15 | disposition home or self-care (01) ==
LOC: HO.LAB 07:14
PROVIDERS: Absent Provider Physician Assistant Medical; PCP Internal Medicine; Visit Provider Internal Medicine
DX: Z00.00 Encounter for general adult medical examination without abnormal findings (principal); E55.9 Vitamin D deficiency, unspecified; R41.89 Other symptoms and signs involving cognitive functions and awareness; D64.9 Anemia, unspecified; E78.00 Pure hypercholesterolemia, unspecified; R53.83 Other fatigue; G47.9 Sleep disorder, unspecified
CPT/HCPCS: 36415; 80053; 80061; 81001; 82306; 82607; 82728; 82746; 83090; 83540; 83921; 84443; 85025; 87086

== ENCOUNTER → 2024-07-04 20:30 | Outpatient (REF) | payer BC, SELFPAY | LOC: HO.SL 20:30 | PROVIDERS: PCP Internal Medicine; Visit Provider Physician Assistant Medical | DX: G47.33 Obstructive sleep apnea (adult) (pediatric) (principal) | CPT/HCPCS: 95810 ==

== ENCOUNTER → 2024-07-04 22:43 | Outpatient (BNV) | payer BC, SELFPAY | PROVIDERS: PCP Internal Medicine; Visit Provider Psychiatry & Neurology Neurology | DX: R06.83 Snoring (principal) | CPT/HCPCS: 95810 ==

== ENCOUNTER 2024-08-21 08:32 | Outpatient (REF) | payer BC, SELFPAY ==
[2024-08-21 09:21] LABS: Appearance Urine Clear; Color Urine Yellow; Glucose Urine UA Negative (Negative); Leukocyte Esterase Urine Negative (Negative); Nitrite Urine Negative (Negative); PH >= 9.0 (5.0-9.0); Specific Gravity - Urine 1.015 (1.005-1.025); Urine Blood Negative (Negative); Urine Ketones Negative (Negative); Urine Protein Negative (Neg-Trace)
[2024-08-21 10:28] LABS: Parathyroid Hormone Intact 27.7 pg/mL (8.7-77.1)
[2024-08-22 15:39] LABS: Calcium, Ionized 5.2 mg/dL (4.7-5.5)
== END 2024-08-21 08:33 | disposition home or self-care (01) ==
LOC: HO.LAB 08:32
PROVIDERS: PCP Internal Medicine; Visit Provider Physician Assistant Medical
DX: Z00.00 Encounter for general adult medical examination without abnormal findings (principal); E55.9 Vitamin D deficiency, unspecified; R30.0 Dysuria
CPT/HCPCS: 36415; 81003; 82330; 83970

== ENCOUNTER 2024-08-28 11:28 | Outpatient (AMB) | payer BC, SELFPAY ==
--- NOTE | 2024-08-28 11:49 | MHC.OFFVIS ---
Vital Signs 08/28/24 11:50 Height 5 ft 3 in Weight 190 lb BMI 33.7 Pulse 91 Pulse Source Pulse Oximeter Pulse Oximetry (%) 99 Oxygen Delivery Method Room Air Intake Visit Reasons: 3 mo follow up Intake Note: Patient presents follow up SHIRA. Labs/PSG in chart(AHI-0, CHAD-93%. No evidence of sleep associated movement disorders.) Patient has questions regarding her iron rx. patient states feeling bloated and some pain in the chest(acid relax) x2wks. Takes Tums and Pepcid( Tums don't touch and Pepcid stopped working.) Allergies No Known Allergies Allergy (Verified 08/28/24 16:12) HPI Comments Details: 34 year old female referred to us for obstructive sleep apnea, per PCP. HST Completed in Jun 2024, mild to moderate sleep apnea with AHI 31 in supine position and O2 desat to 89%. PSG 07/31/2024 c/w AHI of 0 with no infrequent PLMD. She c/o not being able to sleep well that night during the HST and was unable to breath felt like she was gasping for air, as she is usually a side sleeper. She snores loudly which has diminished with a mouth gaurd she purchased from [employer] however it is cutting into her gums as it does not adjust well to her molars. We discussed sleep dentistry referral today. She continues to have bloating and constipation, she started an iron supplement and this was making her stools harder, so she is now taking it every other day, we discussed taking it every 2 days and taking a laxative, senna and psylium husk, to soften stools. She has terrible acid reflux with burning in her chest, difficulty swallowing food and nausea, she just returned from 2 weeks of vacation and was unable to drink any alcohol due to the pain. She has tried fomatidine, however this did not help and pepto bismol otc. Today she is trying to keep the bile down by drinking water to prevent the acid from coming up. It is worse at night usually but for the past 2 weeks it has been worse with pain that radiates to the jaw and her up in the center of her chest. We discussed being see at the urgent care today, and f/u for sleep visit after imagining to r/o h.pylori, ectopic , cv issues or cholecystitis, or kidney stones. The pain has been keeping her from eating a decent meal and sleeping through the nights. She has brain fog, and erratic sleep cycles. She is a side sleeper and feels overly fatigued today. Will f/u with a telehealth after her urgent care appt. Denies RLS, reviewed labs with her today. [facility] Medical History (Updated 08/28/24 @ 22:44 by Scot Salazar PA-C) Acid reflux Obstructive sleep apnea Eczema Obesity (BMI 30-39.9) Surgical History No pertinent past surgical history Family History Father No problems noted. Mother No problems noted. 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 Cognitive needs: No Hearing needs: No Vision needs: No Female Reproductive History Menstrual Age of Menarche: 14 Physical Exam Vital Signs: Last Vital Signs Pulse 91 08/28/24 11:50 Pulse Ox 99 08/28/24 11:50 Oxygen Delivery Method Room Air 08/28/24 11:50 BMI result Body Mass Index 33.7 Const General: cooperative and comfortable Orientation/consciousness: patient oriented x3 HEENT Face and sinus: Yes face symmetric Eyes Pupils: Equal, round and reactive pupils present Resp Effort & Inspection: normal respiratory effort and able to speak in complete sentences Neuro General: patient oriented x3 and moves all extremities Cranial nerves: Yes Facial sensation intact/muscles of mastication intact, Yes Equal, round and reactive pupils present, Yes Normal facial strength present, Yes Midline tongue present, Yes Ability to bilaterally rotate head present and Yes Ability to bilaterally elevate shoulders present Gait exam (Neuro): Normal gait present Motor exam (neuro): 5/5 motor strength present throughout and Normal motor muscle tone present throughout Psych Appearance: grossly normal Thought process: Normal thought process present Thought content: Normal thought content present Results AMB Test Urine AMB Test Urine Cancelled Last Edit by Fernando Conklin CCM on 08/28/24 16:32 AMB Test Urine previously reported as Positive Fernando Conklin 08/28/24 16:32 CANCELLED incorrect provider AMB Urinalysis, Automated UA Leukoctes 0 Nadir/uL Last Edit by Fernando Conklin CCM on 08/28/24 14:59 UA Nitrite Negative Last Edit by Fernando Conklin [facility] on 08/28/24 14:59 UA Urobilinogen 0.2 mg/dL Last Edit by Fernando Conklin [facility] on 08/28/24 14:59 UA Protein 0 mg/dL Last Edit by Fernando Conklin [facility] on 08/28/24 14:59 UA pH 6.0 Last Edit by Fernando Conklin [facility] on 08/28/24 14:59 UA Blood 0 Geovanny/uL Last Edit by Fernando Conklin [facility] on 08/28/24 14:59 UA Specific [place] 1.005 Last Edit by Fernando Conklin [facility] on 08/28/24 14:59 UA Ketone Negative Last Edit by Fernando Conklin [facility] on 08/28/24 14:59 UA Bilirubin 0 mg/dL Last Edit by Fernando Conklin [facility] on 08/28/24 14:59 UA Glucose 0 mg/dL Last Edit by Fernando Conklin [facility] on 08/28/24 14:59 AMB Test Urine AMB Test Urine Positive Last Edit by Fernando Conklin [facility] on 08/28/24 16:34 Results Reviewed Results Reviewed: PSG 07/31/2024 AHI 0 and infrequent limb movements associated with arousals, no evidence of SHIRA. HST 07/03/2024 AHI is 31 in suppine postion and O2 [place] to 89%. She is a side sleeper if apnea doesn't improve with oral appliance and positional therapy, along with weight loss, will consider starting cpap use at [id number] and monitor for therapy. Assessment & Plan Assessment & Plan (1) Obstructive sleep apnea: Comment: HST c/w moderate shira in suppine position and PSG did not shows no evidence of SHIRA Code(s): G47.33 - Obstructive sleep apnea (adult) (pediatric) Category: Medical Plan: Sleep dentistry for oral appliance assessement. (2) Fatigue due to sleep pattern disturbance: Comment: Reviewed Labs Code(s): R53.83 - Other fatigue; G47.9 - Sleep disorder, unspecified Category: Medical (3) Loud snoring: Code(s): R06.83 - Snoring Category: Medical (4) Acid reflux: Code(s): K21.9 - Gastro-esophageal reflux disease without esophagitis Category: Medical Qualifiers: Esophagitis presence: esophagitis presence not specified Qualified Code(s): K21.9 - Gastro-esophageal reflux disease without esophagitis Plan PSG reviwed with patient AHI was 0, infrequent periodic limb movements, she slept on her side during most of the study. Fatigue labs reviewed with patient started her on iron every two days ferrous sulfate 325mg PO, may take laxative for hard stools. Sleep dentistry referral for Bruxism and assessment for oral appliance as this will eliminate snoring. Gerd, referred to urgent care walk in clinic to r/o , cysts, ectopic , cholecystitis, kidney stones, and cv comorbidities. F/u in 3 months after Sleep dentistry consult or via tele-health if sleep disturbances are not improved with positional therapy, as AHI improved with side sleeping vs supine sleeping. Orders: Referrals Dentistry Referral R06.83 - Snoring Patient Instructions: Sleep Hygiene provided: set a scheduled bedtime and wake time to help regulate the circadian rhythm and balance the release of pituitary hormones. Sleep in a dark room, temperatures below 68 degrees, and no devices n bed. Limit caffeinated products 6 hours prior to bed, and limit fluids 2-4 hours prior to bed. Gentle night yoga, diffusing essential oils, and playing soft music can be relaxing. Coding Level of Care Code Est Pt Level 4 (23790) Diagnoses Obstructive sleep apnea G47.33 Fatigue due to sleep pattern disturbance R53.83; G47.9 Loud snoring R06.83 Gastroesophageal reflux disease, unspecified whether esophagitis present K21.9 Esophagitis presence: esophagitis presence not specified Time Spent (min) 30
[2024-08-28 11:50] VITALS: PULSE 91; O2SAT 99; BMI 33.7
== END 2024-08-28 12:40 | disposition home or self-care (01) ==
LOC: HO.HSMS 11:28
PROVIDERS: PCP Internal Medicine; Visit Provider Physician Assistant Medical
DX: G47.33 Obstructive sleep apnea (adult) (pediatric) (principal); R53.83 Other fatigue; G47.9 Sleep disorder, unspecified; R06.83 Snoring; K21.9 Gastro-esophageal reflux disease without esophagitis
CPT/HCPCS: 99214

== ENCOUNTER → 2024-08-28 11:28 | Outpatient (BNVA) | payer BC, SELFPAY | PROVIDERS: PCP Internal Medicine; Visit Provider Physician Assistant Medical | DX: Z32.01 Encounter for pregnancy test, result positive (principal) | CPT/HCPCS: 81003; 81025 ==

== ENCOUNTER 2024-08-28 13:04 | Outpatient (AMB) | payer BC, SELFPAY ==
--- NOTE | 2024-08-28 13:21 | AM.OFFWIN_ITS ---
<Statement entered by Ivanna Waters PA-C - 09/06/24 10:23> Patient was not seen by this provider. SAUNDRA Steiner Intake Vital Signs 08/28/24 13:22 Height 5 ft 3 in Weight 192 lb BMI 34.0 BP 122/84 Blood Pressure Location Rt brachial Position Sitting Pulse 74 Pulse Source Pulse Oximeter Pulse Oximetry (%) 98 Oxygen Delivery Method Room Air Intake Visit Reasons: EP-frequent heartburns/stomach bloating Intake Note: Patient here for frequent heartburn that has been going on for about 2 weeks. She states she has been feeling very bloated. Patient Tobacco Use Status: Never used Tobacco Allergies No Known Allergies Allergy (Verified 08/28/24 16:12) Do you need a note to return to daycare/school/sports/work: No HPI HPI Comments History of Present Illness Details History of Present Illness - The patient is a 34-year-old female pr esenting with 2 weeks of exacerbated symptoms suggestive of GERD, including persistent reflux-like episodes unrelated to meals, exacerbated bloating, and significant abdominal discomfort. These began acutely around two weeks ago, with a preceding history of constipation likely secondary to iron supplementation. Notably, her previous bowel habits included multiple daily evacuations, reduced at present to every two to three days. Patient reports changes initiated after she was advised to commence iron supplementation, she has stopped the iron supplement. Recent travel to the [place] started one week after the exacerbation. She is not on any weight-loss injectable medications like GLP-1 agonists.. Currently, she manages heartburn with water intake, has a history of weight fluctuations, and migraines without other apparent systemic symptoms such as fever or severe pain. She denies any bloody or black stools or fevers or urinary symptoms. Physical ExamGeneral: Cooperative, healthy appearing, comfortable, no acute distress and well developed Orientation: Patient oriented x3 Limitations: No limitations Head: Normal to inspection Ears: Hearing grossly normal bilaterally Nose: Normal External nose present Face and sinus: Normal facial exam Eyes: Appearance normal, both eyes and all related structures Neck: Normal visual inspection and Yes full ROM Respiratory: Normal respiratory effort and able to speak in complete sentences. GI: soft, slight TTP suprapubic, no guarding Skin: No rashes or lesions noted Neuro: Patient oriented x3 Extremities: Normal to inspection [facility] Medical History (Updated 08/29/24 @ 08:16 by Tara Mccord PA-C) Acid reflux Obstructive sleep apnea Eczema Obesity (BMI 30-39.9) Surgical History No pertinent past surgical history Family History Father No problems noted. Mother No problems noted. 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 Cognitive needs: No Hearing needs: No Vision needs: No Female Reproductive History Menstrual Age of Menarche: 14 Review of Systems Const All systems reviewed & are unremarkable except as noted in HPI and below Physical Exam Vital Signs: Last Vital Signs Pulse 74 08/28/24 13:22 BP 122/84 08/28/24 13:22 Pulse Ox 98 08/28/24 13:22 Oxygen Delivery Method Room Air 08/28/24 13:22 BMI result Body Mass Index 34.0 Results AMB Test Urine AMB Test Urine Cancelled Last Edit by YESIS Daniel on 08/28/24 16:32 AMB Test Urine previously reported as Positive Fernando Conklin 08/28/24 16:32 CANCELLED incorrect provider AMB Urinalysis, Automated UA Leukoctes 0 Nadir/uL Last Edit by YESSI Daniel on 08/28/24 14:59 UA Nitrite Negative Last Edit by YESSI Daniel on 08/28/24 14:59 UA Urobilinogen 0.2 mg/dL Last Edit by YESSI Daniel on 08/28/24 14:59 UA Protein 0 mg/dL Last Edit by YESSI Daniel on 08/28/24 14:59 UA pH 6.0 Last Edit by Fernando Conklin [facility] on 08/28/24 14:59 UA Blood 0 Geovanny/uL Last Edit by Fernando Conklin [facility] on 08/28/24 14:59 UA Specific [employer] 1.005 Last Edit by Fernando Conklin CCM on 08/28/24 14:59 UA Ketone Negative Last Edit by Fernando Conklin [facility] on 08/28/24 14:59 UA Bilirubin 0 mg/dL Last Edit by Fernando Conklin [facility] on 08/28/24 14:59 UA Glucose 0 mg/dL Last Edit by Fernando Conklin [facility] on 08/28/24 14:59 AMB Test Urine AMB Test Urine Positive Last Edit by Fernando Conklin [facility] on 08/28/24 16:34 Results Reviewed Results Reviewed: Laboratory Last Values Urine pH (Auto) 6.0 08/28/24 14:55 Specific [employer] (Auto) 1.005 08/28/24 14:55 Urine Protein (Auto) 0 mg/dL 08/28/24 14:55 Glucose (UA)(Auto) 0 mg/dL 08/28/24 14:55 Urine Ketones (Auto) Negative 08/28/24 14:55 Urine Blood (Auto) 0 Geovanny/uL 08/28/24 14:55 Urine Nitrite (Auto) Negative 08/28/24 14:55 Urine Bilirubin (Auto) 0 mg/dL 08/28/24 14:55 Urine Urobilinogen (Auto) 0.2 mg/dL 08/28/24 14:55 Leukocyte Esterase (Auto) 0 Nadir/uL 08/28/24 14:55 [facility]st Clinic Positive 08/28/24 16:32 Assessment & Plan Assessment & Plan (1) Acid reflux: Code(s): K21.9 - Gastro-esophageal reflux disease without esophagitis Qualifiers: Esophagitis presence: esophagitis presence not specified Qualified Code(s): K21.9 - Gastro-esophageal reflux disease without esophagitis Plan: I will assess for Helicobacter pylori infection due to her gastrointestinal symptoms exacerbated by recent travel to , utilizing the established breath test protocol. Following test completion, results will guide further intervention, including antimicrobial therapy suited with her current medication regimen. Meanwhile, with the suprapubic tenderness, I will conduct another urinalysis to review previously elevated pH levels for any deviations indicating infection risk. I will contact her with results and provide subsequent therapeutic adjustment based on findings and necessity, ensuring alignment with her current health status and treatment regimen. Patient was informed and verbally consented to the use of an ambient scribe for clinic note documentation during this visit. (2) Abdominal bloating: Code(s): R14.0 - Abdominal distension (gaseous) Plan: as above/below (3) Positive urine test: Code(s): Z32.01 - Encounter for test, result positive Plan: Dominga, I do not see that a chart was started and therefore I was unable to write an addendum. I called the patient directly at 3:00 p.m. and the patient reported having pelvic pain x2 weeks. Patient is referred to her floor service worker spring given that her test was positive today in the Walk-In, but I urged her to go to the emergency department to rule out an ectopic . Patient states that she would go as soon as she was able this afternoon. Expect was called to the ED at 3:10 p.m. Ivanna Cid PA-C US done in the ED as follows: [place] [id number] Ultrasound Report Signed Patient: Shaheen Hopkins MR#: [id number] : 1990 Acct:[id number] Age/Sex: 34 / F ADM Date: 08/28/24 Loc: HO.ED Attending Dr: Ordering Physician: Honey Herrera Date of Service: 08/28/24 Procedure(s): US OB limited Accession Number(s): [id number] cc: Bowen Hernandez MD; Honey Herrera~ CLINICAL HISTORY: +urine preg, pelvic pain Exam: Transabdominal obstetrical ultrasound limited. Comparison: None. Findings: Transabdominal study only was performed. Urinary bladder is mildly distended. Single intrauterine gestation in vertex presentation is evident. Femur length measurement is the only biometric data obtained. This gives an estimated age by ultrasound of 19 weeks and 4 days +/-2 weeks. cardiac activity is confirmed at 150 beats per minute. Amniotic fluid volume is subjectively appropriate. Ovaries are unremarkable. No free pelvic fluid. Impression: Single intrauterine gestation with age by ultrasound based on femur length of 19 weeks and 4 days +/-2 weeks with confirmed cardiac activity. CORTEZ by ultrasound 01/18/2025. This document has been electronically signed by: Jered Stanley MD on 08/28/2024 17:51:43 Orders: Orders AMB Urinalysis Automated 08/28/24 Tara Mccord PA-C Z13.9 - Encounter for screening, unspecified AMB HCG Urine Test 08/28/24 Ivanna Cid PA-C Z32.01 - Encounter for test, result positive H Pylori Breath Test 08/28/24 Tara Mccord PA-C K21.9 - Gastro-esophageal reflux disease without esophagitis, R14.0 - Abdominal distension (gaseous) Coding Level of Care Code Est Pt Level 4 (93173) Diagnoses Gastroesophageal reflux disease, unspecified whether esophagitis present K21.9 Esophagitis presence: esophagitis presence not specified Abdominal bloating R14.0 Positive urine test Z32.01
[2024-08-28 13:22] VITALS: BP 122/84; PULSE 74; O2SAT 98; BMI 34.0
== END 2024-08-28 14:29 | disposition home or self-care (01) ==
PROVIDERS: PCP Internal Medicine; Visit Provider Physician Assistant
DX: K21.9 Gastro-esophageal reflux disease without esophagitis (principal); R14.0 Abdominal distension (gaseous); Z32.01 Encounter for pregnancy test, result positive

== ENCOUNTER 2024-08-28 15:43 | Emergency (ER) | payer BC, SELFPAY ==
--- NOTE | ~2024-08-28 | US_ITS ---
CLINICAL HISTORY: +urine preg, pelvic pain Exam: Transabdominal obstetrical ultrasound limited. Comparison: None. Findings: Transabdominal study only was performed. Urinary bladder is mildly distended. Single intrauterine gestation in vertex presentation is evident. Femur length measurement is the only biometric data obtained. This gives an estimated age by ultrasound of 19 weeks and 4 days +/-2 weeks. cardiac activity is confirmed at 150 beats per minute. Amniotic fluid volume is subjectively appropriate. Ovaries are unremarkable. No free pelvic fluid. Impression: Single intrauterine gestation with age by ultrasound based on femur length of 19 weeks and 4 days +/-2 weeks with confirmed cardiac activity. CORTEZ by ultrasound 01/18/2025. This document has been electronically signed by: Jered Stanley MD on 08/28/2024 17:51:43
[2024-08-28 16:10] VITALS: BP 119/75; PULSE 79; RESP 18; O2SAT 100; BMI 32.2
[2024-08-28 16:13] VITALS: TEMP 36.7
--- NOTE | 2024-08-28 16:24 | ED_ITS ---
HPI - Abdominal Pain General Chief Complaint: Abdominal Pain Stated Complaint: Abdominal/pelvic pain, +Preg test Time Seen by Provider: 08/28/24 18:42 Source: patient Mode of arrival: ambulatory Limitations: no limitations History of Present Illness ED Provider: julia momin HPI narrative: Patient is a 34-year-old female who presents emergency department coming from urgent care for evaluation. Reports over the past 2 weeks she has been experiencing discomfort to the mid lower abdomen as well as a bloating sensation, mild pelvic pain. Typically worse when in a seated position. She also states that she has been experiencing constipation having small bowel movements every 2-3 days when typically she would normally go 2-3 times daily. She denies any hematochezia or melena. She has had intermittent heartburn. In June of 2024 she was started on iron supplementation from her sleep doctor as she was found to be slightly anemic, she felt this was causing stomach upset therefore she has stopped taking the iron supplementation. She reports her last menstrual period was in July of 2024, had some mild spotting however she has been taking oral contraceptives and therefore this would have been expected for her. At the urgent care today she was called back to be advised that she had a positive test. She denies having any abnormal vaginal discharge, vaginal bleeding since July, concern for sexually transmitted infections. Denies dysuria, urinary frequency/urgency/hesitancy. This would be her first Related Data Home Medications ?Medication ?Instructions ?Recorded ?Confirmed clobetasol 0.05 % topical ointment 1 appl topical BID 02/03/22 05/18/24 dupilumab 300 mg/2 mL subcutaneous 300 mg subcut Q2W 05/06/23 05/18/24 pen injector (Dupixent) Previous Rx's ?Medication ?Instructions ?Recorded norethindrone acetate 1.5 1 tab PO DAILY #84 tabs 02/06/24 mg-ethinyl estradiol 30 mcg tablet (Junel) cholecalciferol (vitamin D3) 62.5 62.5 mcg PO DAILY Deficient 06/15/24 mcg (2,500 unit) capsule Vitamin D 90 days #90 caps ferrous sulfate 325 mg (65 mg 325 mg PO DAILY 90 days #90 tabs 06/19/24 iron) tablet polyethylene glycol 3350 17 17 g PO DAILY #119 grams 05/20/25 gram/dose oral powder (Miralax) vits no.126-ferrous fum 1 tab PO DAILY #90 tabs 08/28/24 28 mg iron-folic acid 800 mcg tablet (Classic ) Allergies Allergy/AdvReac Type Severity Reaction Status Date / Time No Known Allergies Allergy Verified 08/28/24 16:12 Review of Systems Review of Systems Yes all other systems are reviewed and are negative PMFSH Past Medical History Attestation statement: The following information was validated with the patient. Source: old records reviewed Medical History (Updated 08/29/24 @ 00:00 by Yolette Cantu) Acid reflux Obstructive sleep apnea Eczema Obesity (BMI 30-39.9) Surgical History No pertinent past surgical history Family History Family History Father No problems noted. Mother No problems noted. Paternal Grandmother Stroke Alzheimer's dementia, late onset Breast cancer Hypertension H/O mastectomy Other Mental health problem Social History Social History Housing: House Alcohol intake: current Alcohol intake frequency: holidays/special occasions only Patient Tobacco Use Status: Never used Tobacco Smoked in Last 30 Days: No e-Cigarette/Vaping Use: Never Used Second Hand Smoke Exposure: Yes Use of substances other than those prescribed or required for medical reasons: No Advance Directives: No Advance Directives Information Provided: No Patient : Yes service: No Current occupational status: employed 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 No acute distress.?Normal affect. CVS: Heart sounds normal. Normal heart rate and rhythm.? Pulses normal.?? Respiratory: No respiratory distress.? Lung sounds clear to auscultation bilaterally?? Abdomen: Soft and non-tender. Normoactive bowel sounds. No pulsatile mass.??No CVAT. Skin: Skin warm and dry.? Normal skin color.? Extremities: No lower extremity edema.? Neuro: Moves all extremities spontaneously. Sensation intact bilaterally. Ambulates with normal steady gait. Course Course Course Narrative: 08/28/24 1624 DARWIN Ferguson This is a Rapid Medical Examination (RME) performed by Ramone Herrera PA-C in triage. Full HPI, ROS, assessment and treatment plan per primary provider in the Main ED. Hx: 34 yo F here from for eval of mid abd pain/ bloating with pelvic pain x2 wks. LMP (spotting) in July. Positive test at today. Denies vaginal discharge or bleeding. No dysuria. On iron supplementation for anemia. Plan: labs, US, UA Medical Decision Making Medical Decision Making MDM Narrative: Patient is a 34-year-old female with past medical history of Eczema, SHIRA, obesity, anemia, she is a with positive test today as per HPI with reports of mid abdominal discomfort and distention intermittent heartburn constipation as per HPI. Reviewed workup obtained prior to my assumption of care; CBC is without leukocytosis, has a mild normocytic anemia with H and H of 11.6 and 34.9 not meeting transfusion criteria, mild thrombocytosis 406,000. No electrolyte derangement. No SAGAR. Unremarkable LFTs and lipase. Beta hCG 10,679. Urinalysis without evidence of infection or microscopic hematuria. She had transabdominal limited OB ultrasound ordered feels single intrauterine gestation with estimated age of 19 weeks 4 days with confirmed cardiac activity 150 beats per minute, CORTEZ 01/18/2025. She has not have unilateral abdominal pain or significant tenderness on examination, she denies concern for sexually transmitted infections, denies known history of ovarian cysts, low suspicion for tubo-ovarian abscess, PID, ovarian torsion, ruptured ovarian cyst. No evidence of ectopic on ultrasound. No associated urinary symptoms and no CVA tenderness to suggest renal colic secondary to calculi or pyelonephritis. Differential Diagnosis Differential Diagnoses: The differential diagnosis associated with the presentation includes (See narrative above) Lab Data MDM Lab Attestation statement: I reviewed the patient's lab results. (See narrative above) 08/28/24 16:24 08/28/24 16:24 Labs: Lab Results 08/28/24 08/28/24 Range/Units 16:24 17:33 WBC 10.1 (4.8-10.8) X10*3/uL RBC 4.39 (4.20-5.50) X10*6/uL Hgb 11.6 L (12.0-16.0) g/dl Hct 34.9 L (37.0-47.0) % MCV 79.5 L (80.0-98.0) fL MCH 26.4 L (27.0-33.0) pg MCHC 33.2 (31.0-35.0) g/dl RDW 14.4 (11.0-16.0) % Plt Count 406 H (160-400) X10*3/uL MPV 8.4 L (9.4-12.3) fL Immature Gran % (Auto) 0.7 H (0.0-0.4) % Neut % (Auto) 77.7 H (45-73) % Lymph % (Auto) 15.9 L (20-40) % [place] % (Auto) 4.8 (2-11) % Eos % (Auto) 0.8 (0-4) % Baso % (Auto) 0.1 (0-2) % Lymph # (Auto) 1.6 (1.2-4.9) X10*3/uL [place] # (Auto) 0.5 (0.1-1.2) X10*3/uL Eos # (Auto) 0.1 (0.0-0.4) X10*3/uL Baso # (Auto) 0.0 (0.0-0.2) X10*3/uL Abs Immat Gran (auto) 0.07 H (0.00-0.03) X10*3/uL Absolute Neuts (auto) 7.8 (2.0-8.3) x10*3/uL Absolute Nucleated RBC 0.000 (0.0-0.012) X10*3/uL Nucleated RBC % (auto) 0.0 (0.0-0.2) /100WBC Sodium 135 (135-145) mmol/L Potassium 3.6 (3.3-5.1) mmol/L Chloride 104 (96-108) mmol/L Carbon Dioxide 25 (22-29) mmol/L Anion Gap 10 L (12-20) BUN 4 L (9-16) mg/dL Creatinine 0.59 (0.5-1.4) mg/dL Estim Creat Clear Calc 144.3 Estimated GFR > 60 Random Glucose 83 (60-115) mg/dL Calcium 9.5 (8.4-10.2) mg/dL Magnesium 1.6 (1.6-2.6) mg/dL Total Bilirubin 0.6 (0.0-1.0) mg/dL AST 28 (5-31) U/L ALT 18 (0-31) U/L Alkaline Phosphatase 86 (39-117) U/L Total Protein 7.3 (6.5-8.0) g/dL Albumin 3.9 (3.5-5.0) g/dL Lipase 12 (8-78) U/L Beta HCG, Quant 17145 mIU/mL Urine Color Yellow Urine Appearance Clear Urine pH 6.0 (5.0-9.0) Ur Specific [place] <= 1.005 (1.005-1.025) Urine Protein Negative (Neg-Trace) mg/dL Urine Glucose (UA) Negative (Negative) mg/dL Urine Ketones Negative (Negative) mg/dL Urine Blood Negative (Negative) Urine Nitrite Negative (Negative) Ur Leukocyte Esterase Negative (Negative) Urine Test POSITIVE H (NEGATIVE) Radiology Impression Discussion of test interpretation with radiology: I have reviewed the radiologist's reading. Radiologist Impression: Transabdominal obstetrical ultrasound limited. Comparison: None. Findings: Transabdominal study only was performed. Urinary bladder is mildly distended. Single intrauterine gestation in vertex presentation is evident. Femur length measurement is the only biometric data obtained. This gives an estimated age by ultrasound of 19 weeks and 4 days +/-2 weeks. cardiac activity is confirmed at 150 beats per minute. Amniotic fluid volume is subjectively appropriate. Ovaries are unremarkable. No free pelvic fluid. Impression: Single intrauterine gestation with age by ultrasound based on femur length of 19 weeks and 4 days +/-2 weeks with confirmed cardiac activity. CORTEZ by ultrasound 01/18/2025. External Record Review External record reviewed: Outpatient record Prescription Management I considered prescription management with: Other ( vitamin, MiraLax) Discharge Plan Discharge Clinical Impression: Second trimester , Constipation Patient Disposition: Home, Self-Care Instructions: Constipation (ED), High Fiber Diet (ED), at 19 to 22 Weeks (ED) Additional Instructions: As discussed ultrasound today shows that you approximately 19 weeks and 4 days with estimated due date of 01/18/2025. As mentioned, the symptoms that you are experiencing as well as constipation all can be quite common during . Review the instructions regarding increased dietary fiber intake, as well as adequate hydration consuming at least 8 8-12 ounce glasses of water daily. I have also so sent a prescription for MiraLax to the pharmacy to take daily, discontinue use if you experience diarrhea. Prescription for vitamin has been sent to your pharmacy. As discussed, he is going to be imperative that you contact OB office tomorrow, you may speak with them about obtaining typical screening blood work as well as anatomy ultrasound scan while you were working to establish care as a new patient at alternative OBGYN office corresponding with where you will prefer to continue your care and give as mentioned. OBGYN and Midwifery [facility] [address] [place] [address] [address] [facility] [address] [place] [phone] [facility] [address] [place] [phone] OBGYN and Midwifery [facility] [address] [place] [phone] [address] [facility] [place] [phone] Prescriptions: New polyethylene glycol 3350 [Miralax] 17 gram/dose powder 17 g PO DAILY Qty: 119 0RF Classic 28 mg iron- 800 mcg tablet 1 tab PO DAILY Qty: 90 0RF No Action cholecalciferol (vitamin D3) 62.5 mcg (2,500 unit) capsule 62.5 mcg PO DAILY MDD 2500 unit 90 Days Qty: 90 3RF Rx Instructions: take one tablet by mouth daily ferrous sulfate 325 mg (65 mg iron) tablet 325 mg PO DAILY 90 Days Qty: 90 2RF Rx Instructions: Take one tablet of 325mg PO daily with [place] Juice daily. clobetasol 0.05 % ointment 1 appl topical BID Dupixent Pen 300 mg/2 mL pen injector 300 mg subcut Q2W norethindrone ac-eth estradiol [ ()] 1.5-30 mg-mcg tablet 1 tab PO DAILY Qty: 84 4RF Rx Instructions: Take 1 tablet daily Referrals: Bowen Hernandez MD [Primary Care Provider] - Interventions: ED Discharge Assessment Last Done: 08/28/24 20:26 Discharge Date/Time: 08/28/24 20:26 Print Language: Slovenian
[2024-08-28 16:27] LABS: MANUAL DIFF FLAG NO
[2024-08-28 16:29] LABS: Basophils Percent Auto 0.1 % (0-2); Eosinophils Absolute Auto 0.1 X10*3/uL (0.0-0.4); Eosinophils Percent Auto 0.8 % (0-4); Hematocrit 34.9 % (37.0-47.0); Hemoglobin 11.6 g/dl (12.0-16.0); Imm Gran Abs Auto 0.07 X10*3/uL (0.00-0.03); Imm Gran Pct Auto 0.7 % (0.0-0.4); Lymphocytes Absolute Auto 1.6 X10*3/uL (1.2-4.9); Lymphocytes Percent Auto 15.9 % (20-40); Mean Corpuscular HGB Conc 33.2 g/dl (31.0-35.0); Mean Corpuscular Hemoglobin 26.4 pg (27.0-33.0); Mean Corpuscular Volume 79.5 fL (80.0-98.0); Mean Platelet Volume 8.4 fL (9.4-12.3); Monocytes Absolute Auto 0.5 X10*3/uL (0.1-1.2); Monocytes Percent Auto 4.8 % (2-11); Neutrophils Absolute Auto 7.8 x10*3/uL (2.0-8.3); Neutrophils Percent Auto 77.7 % (45-73); Platelet Count 406 X10*3/uL (160-400); Red Blood Count 4.39 X10*6/uL (4.20-5.50); Red Cell Distribution Width 14.4 % (11.0-16.0); White Blood Count 10.1 X10*3/uL (4.8-10.8)
[2024-08-28 16:49] LABS: Alanine Aminotransferase 18 U/L (0-31); Albumin Level 3.9 g/dL (3.5-5.0); Alkaline Phosphatase 86 U/L (39-117); Anion Gap 10 (12-20); Aspartate Amino Transferase 28 U/L (5-31); Bilirubin Total 0.6 mg/dL (0.0-1.0); Blood Urea Nitrogen 4 mg/dL (9-16); Calcium 9.5 mg/dL (8.4-10.2); Carbon Dioxide 25 mmol/L (22-29); Chloride 104 mmol/L (96-108); Creatinine Clr Calc Pharmacy 144.3; Estimated Glomerular Filt Rate > 60; Glucose Random 83 mg/dL (60-115); HCG Quantitative 10679 mIU/mL; Lipase 12 U/L (8-78); Magnesium 1.6 mg/dL (1.6-2.6); Potassium 3.6 mmol/L (3.3-5.1); Sodium 135 mmol/L (135-145); Total Protein 7.3 g/dL (6.5-8.0)
[2024-08-28 17:41] LABS: Appearance Urine Clear; Color Urine Yellow; Glucose Urine UA Negative (Negative); Leukocyte Esterase Urine Negative (Negative); Nitrite Urine Negative (Negative); Specific Gravity - Urine <= 1.005 (1.005-1.025); Urine Blood Negative (Negative); Urine Ketones Negative (Negative); Urine Protein Negative (Neg-Trace)
[2024-08-28 17:43] LABS: UPreg QC Valid YES; Urine Pregnancy POSITIVE (NEGATIVE)
[2024-08-28 18:57] VITALS: BP 125/72; PULSE 87; RESP 24; TEMP 36.8; O2SAT 99
[2024-08-28 19:54] VITALS: BP 125/72; PULSE 87; RESP 18; TEMP 36.8; O2SAT 99
[2024-08-28 20:26] VITALS: BP 125/72; PULSE 87; RESP 18; TEMP 36.8; O2SAT 99
== END 2024-08-28 20:26 | disposition home or self-care (01) ==
PROVIDERS: Physician Assistant Medical; Emergency Provider Emergency Medicine Emergency Medical Services; PCP Internal Medicine
DX: O20.9 Hemorrhage in early pregnancy, unspecified (principal); R10.2 Pelvic and perineal pain; Z3A.19 19 weeks gestation of pregnancy; Z79.899 Other long term (current) drug therapy
CPT/HCPCS: 36415; 76815; 80053; 81003; 81025; 83690; 83735; 84702; 85025; 99284

== ENCOUNTER → 2024-08-28 16:11 | Outpatient (BNV) | payer BC, SELFPAY | PROVIDERS: PCP Internal Medicine; Visit Provider Radiology Diagnostic Radiology | DX: R10.2 Pelvic and perineal pain (principal) | CPT/HCPCS: 76815 ==

== ENCOUNTER 2024-08-28 17:35 | Outpatient (REF) | payer BC, SELFPAY ==
[2024-08-29 08:50] LABS: H Pylori Breath Test Negative (Negative)
== END 2024-08-28 17:36 | disposition home or self-care (01) ==
LOC: HO.LNP 17:35
PROVIDERS: Visit Provider Physician Assistant
DX: K21.9 Gastro-esophageal reflux disease without esophagitis (principal); R14.0 Abdominal distension (gaseous)
CPT/HCPCS: 83013

== ENCOUNTER 2024-09-18 15:52 | Outpatient (AMB) | payer BC, SELFPAY ==
[2024-09-18 15:53] VITALS: BP 124/66; PULSE 87; RESP 22; TEMP 37; O2SAT 97; BMI 33.2
--- NOTE | 2024-09-18 15:53 | MHC.PC.OV ---
Vital Signs 09/18/24 15:53 Height 5 ft 4 in Weight 193 lb 6.4 oz BMI 33.2 BP 124/66 Blood Pressure Location Lt brachial Position Sitting Respiration 22 H Pulse 87 Pulse Source Pulse Oximeter Temp 98.6 F Temp Source Oral Pulse Oximetry (%) 97 Oxygen Delivery Method Room Air Intake Visit Reasons: [facility] 08/28 Abdominal/pelvic pain, +Preg test Intake Note: Patient is here to follow-up after a visit the emergency department at [facility] in [facility] on 08/28/2024. Behavioral Health Associate Required: No Accompanied by: Self / Same As Patient Is last menstrual period known: Yes Last menstrual period: 07/29/24 Patient : Yes (CORTEZ: 01/13/2025) Allergies No Known Allergies Allergy (Verified 09/18/24 16:15) Medication List - Last Reconciled 09/18/24 by EVANGELISTA Rick polyethylene glycol 3350 (Miralax) 17 grams PO DAILY PRN vit no.[id number] 28 mg iron- 800 mcg (Classic ) 1 tab PO DAILY triamcinolone acetonide 0.5% 1 appl topical DAILY PRN Tobacco use date assessed: 09/18/24 Dental Screening Dental Screen Date: 09/18/24 Did you have a dental visit in the last 12 months?: No Did you have a dental problem in the last 6 months where you did not have access to dental care?: No Was dental information given to patient?: Patient has dentist HPI [facility] 08/28 Abdominal/pelvic pain, +Preg test HPI Details Patient is a 34-year-old female presenting for follow up post [facility] visit for abdominal pain Per note review: The patient originally went to urgent care for evaluation for 2 week history of abdominal pain and bloatiness, and mild pelvic pain. The patient was found to be and was advised to go to the emergency room to rule out ectopic . She was evaluated in [facility] ER and was found to be constipated along with pain in the 2nd trimester of . Transabdominal ultrasound showed estimated gestation age of 19 weeks and 4 days with confirmed cardiac activity of 150 beats per minute. Expected date of delivery is 01/18/2025. The patient was given MiraLax to be taken sparingly for constipation and was referred to OBGYN. She was already connected with OBGYN and we will be following up with them frequently. She was also prescribed vitamins. Reports that she took MiraLax once and that cleaned her out and she has been doing well since. The patient is off all her other medications. She will follow up in office May of 2025 and unless she has any other concerns prior to the date. [facility] Medical History Acid reflux Obstructive sleep apnea Eczema Obesity (BMI 30-39.9) Surgical History No pertinent past surgical history Family History Father No problems noted. Mother No problems noted. 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 Cognitive needs: No Hearing needs: No Vision needs: Yes (Glasses) Female Reproductive History Menstrual Age of Menarche: 14 Date of last menstrual period: 07/29/24 Questionnaire Thrive Questionnaire Date Thrive assessed: 09/18/24 I am a: Patient What is your living situation today?: I have a steady place to live Within the past 12 months, did the food you bought not last and you didn't have the money to get more?: Sometimes True Within the past 12 months, did you worry whether your food would run out before you got money to buy more?: Sometimes True Do you have trouble paying for medicines?: No Do you have trouble getting transportation to medical appointments?: No Do you have trouble paying your heating and electricity bill?: Yes Do you have trouble taking care of your child, family member or friend?: No Do you have trouble with day-to-day activities such as bathing, preparing meals, shopping, managing finances, etc.?: No Are you currently unemployed and looking for a job?: No Are you interested in more education?: Yes Please select the resources that you would like help with: None Currently or been in a relationship where the following occur: No concerns reported THRIVE Score: 3 AUDIT C Alcohol Use Questionnaire (AUDIT-C) 1. How often do you have a drink containing alcohol?: Never Total Score: 0 Score Reviewed/Action Taken: No PADMINI-7 AMB Questionnaire PADMINI-7 Date PADMINI - 7 assessed: 05/18/24 Source: Developed by Drs. Mateo Benito, Helena Castanon, Isrrael Morillo and colleagues, with an educational lauren from [email or web address]. Review of Systems Const Denies headache(s) Eyes Denies loss of vision ENT Denies vertigo, Denies dizziness, Denies headache(s) and Denies sore throat Card Denies chest pain, Denies leg edema and Denies lightheadedness Resp Denies cough, Denies hemoptysis and Denies wheezing GI Denies abdominal pain, Denies melena, Denies constipation, Denies diarrhea and Denies vomiting Denies urinary frequency, Denies dysuria and Denies urinary urgency Musc Denies arthralgias, Denies joint swelling, Denies numbness and Denies tingling Neuro Denies Abnormal speech present, Denies behavioral changes, Denies vertigo, Denies dizziness, Denies headache(s), Denies loss of vision, Denies memory loss, Denies numbness and Denies tingling Psych Denies anxiety, Denies behavioral changes, Denies depression, Denies memory loss and Denies panic attacks Abhilash/Lymph Denies easy bleeding and Denies easy bruising Aller/Immun Denies wheezing Physical exam (Primary Care) Vital Signs: Last Vital Signs Temp 98.6 F 09/18/24 15:53 Pulse 87 09/18/24 15:53 Resp 22 H 09/18/24 15:53 BP 124/66 09/18/24 15:53 Pulse Ox 97 09/18/24 15:53 Oxygen Delivery Method Room Air 09/18/24 15:53 BMI result Body Mass Index 33.2 Tobacco/Smoking Status: Tobacco use Status Tobacco use date assessed 09/18/24 09/18/24 15:57 Patient Tobacco Use Status Never used Tobacco 09/18/24 15:57 e-Cigarette/Vaping Use Never Used 09/18/24 15:57 Thrive Assessment: Date of Thrive Assessment Date Thrive assessed 09/18/24 09/18/24 15:57 Currently or been in a relationship where the following occur: No concerns reported Const General: healthy appearing, no acute distress, alert and awake Nutritional Appearance: well nourished Orientation/consciousness: oriented to person, oriented to place and oriented to time HENMT Ears: TM's normal bilaterally General nose exam: Normal nasal mucous membranes and turbinates present Eyes Conjunctivae: conjunctivae normal Sclerae: sclerae normal Pupils: Equal, round and reactive pupils present Neck Neck: Yes no lymphadenopathy and Yes no JVD Thyroid: Thyroid normal Carotids: no bruits Resp Effort & Inspection: normal respiratory effort and not tachypneic Auscultation: no crackles, no rales, no rhonchi and no wheezes Cardio Rate: regular rate Rhythm: regular rhythm Heart sounds: no murmurs and normal S1 and S2 GI Palpation (GI): Soft to palpation, nontender, no hepatomegaly and no splenomegaly Auscultation: normal bowel sounds Skin General skin exam: no rashes or lesions noted and dry skin Neuro General: oriented to person, oriented to place and oriented to time Cranial nerves: Yes Equal, round and reactive pupils present Speech: No Abnormal speech present Gait exam (Neuro): Normal gait present Motor exam (neuro): no tremor noted Extrem Right upper extremity: full ROM Left upper extremity: full ROM Right lower extremity: full ROM; no edema Left lower extremity: full ROM; no edema Psych Mental Status: mental status grossly normal Speech and movement: Normal speech and movement present Affect: normal affect Attitude: cooperative Thought process: Normal thought process present Results Reviewed Results Reviewed: Laboratory Tests 08/28/24 16:24 WBC 10.1 RBC 4.39 Hgb 11.6 L Hct 34.9 L MCV 79.5 L MCH 26.4 L MCHC 33.2 RDW 14.4 Plt Count 406 H Sodium 135 Potassium 3.6 Chloride 104 Carbon Dioxide 25 Anion Gap 10 L BUN 4 L Creatinine 0.59 Estim Creat Clear Calc 144.3 Estimated GFR > 60 Random Glucose 83 Calcium 9.5 Magnesium 1.6 Total Bilirubin 0.6 AST 28 ALT 18 Alkaline Phosphatase 86 Total Protein 7.3 Albumin 3.9 Lipase 12 Beta HCG, Quant 72931 Coding Level of Care Code Est Pt Level 3 (95045) Diagnoses 19 weeks gestation of Z3A.19 Weeks of gestation: 19 weeks Constipation, unspecified constipation type K59.00 Constipation type: unspecified constipation type Time Spent (min) 31 Assessment & Plan Assessment & Plan (1) : Code(s): Z34.90 - Encounter for supervision of normal , unspecified, unspecified trimester Category: Medical Qualifiers: Weeks of gestation: 19 weeks Qualified Code(s): Z3A.19 - 19 weeks gestation of Plan: Patient was found to be 19 weeks and 4 days in the hospital on August 28. He is following up in office on September 18. She is in stable condition with no complaints. She is compliant with vitamins and is not currently taking any other medication. She is already connected the OBGYN and we will be following up with them frequently. (2) Constipation: Code(s): K59.00 - Constipation, unspecified Category: Medical Qualifiers: Constipation type: unspecified constipation type Qualified Code(s): K59.00 - Constipation, unspecified Plan: She was also found to be constipated in the emergency room. She was given MiraLax to take sparingly, this was taken once with positive results. Reports that she has not been constipated since. Medications: Changed From polyethylene glycol 3350 17 grams PO DAILY 119 grams 0RF To polyethylene glycol 3350 (Miralax) 17 grams PO DAILY PRN
== END 2024-09-18 16:23 | disposition home or self-care (01) ==
LOC: HO.HMCH 15:52
PROVIDERS: PCP Internal Medicine
DX: Z3A.19 19 weeks gestation of pregnancy (principal); K59.00 Constipation, unspecified

== ENCOUNTER → 2024-09-18 15:52 | Outpatient (BNVA) | payer BC, SELFPAY | PROVIDERS: PCP Internal Medicine ==